=== PATIENT | male | born 1970 | race Caucasian/White ===

== ENCOUNTER 2020-07-09 07:29 | Outpatient (REF) | payer OTHER, SELFPAY ==
[2020-07-09 08:55] LABS: Alanine Aminotransferase 20 U/L (0-40); Anion Gap 10 (12-20); Aspartate Amino Transferase 18 U/L (5-37); Blood Urea Nitrogen 18 mg/dL (9-16); Carbon Dioxide 27 mmol/L (22-29); Chloride 104 mmol/L (96-108); Estimated Glomerular Filt Rate > 60; Potassium 4.2 mmol/L (3.3-5.1); Sodium 137 mmol/L (135-145)
== END 2020-07-09 07:30 | disposition home or self-care (01) ==
LOC: HO.LAB 07:29
PROVIDERS: PCP Family Medicine; Visit Provider Family Medicine
DX: I10 Essential (primary) hypertension (principal); E78.00 Pure hypercholesterolemia, unspecified; Z79.899 Other long term (current) drug therapy
CPT/HCPCS: 36415; 80051; 82550; 82565; 84450; 84460; 84520

== ENCOUNTER 2020-09-10 07:55 | Outpatient (REF) | payer OTHER, SELFPAY ==
[2020-09-11 12:07] LABS: Lyme Abs Screen <0.90 index
== END 2020-09-10 07:56 | disposition home or self-care (01) ==
LOC: HO.LAB 07:55
PROVIDERS: PCP Family Medicine; Visit Provider Family Medicine
DX: R53.83 Other fatigue (principal); T14.8XXA Other injury of unspecified body region, initial encounter; W57.XXXA Bitten or stung by nonvenomous insect and other nonvenomous arthropods, initial encounter
CPT/HCPCS: 36415; 86617; 86618

== ENCOUNTER 2021-02-02 11:41 | Outpatient (REF) | payer OTHER, SELFPAY ==
[2021-02-02 13:39] LABS: Anion Gap 10 (12-20); Blood Urea Nitrogen 12 mg/dL (9-16); Carbon Dioxide 27 mmol/L (22-29); Chloride 105 mmol/L (96-108); Estimated Glomerular Filt Rate > 60; Potassium 4.3 mmol/L (3.3-5.1); Sodium 138 mmol/L (135-145)
== END 2021-02-02 11:42 | disposition home or self-care (01) ==
LOC: HO.10HDL 11:41
PROVIDERS: Visit Provider Family Medicine
DX: I10 Essential (primary) hypertension (principal)
CPT/HCPCS: 36415; 80051; 82565; 84520

== ENCOUNTER 2021-04-27 06:26 | Day surgery (SDC) | payer OTHER, SELFPAY ==
[2021-04-22 15:18] VITALS: BMI 31.5
--- NOTE | 2021-04-24 12:03 | P.CONAN_ITS ---
Documented by User: Jen Méndez NP 04/24/21 12:04 HPI - Anesthesia Eval Consult details Narrative: 51yo M for Upper Endoscopy and Colonoscopy COUNTS INCLUDE 234 BEDS AT THE [facility] Past Medical History Medical History (Updated 04/24/21 @ 07:43 by Wanda Cuello) Arthritis History of broken nose HTN (hypertension) Hypercholesteremia Kidney stones Surgical History Surgical History (Updated 04/24/21 @ 07:43 by Wanda Cuello) H/O cervical spine surgery H/O colonoscopy H/O right knee surgery History of surgery on arm Social History Social History Tobacco use type: Cigar Have you been hit, kicked, punched, or otherwise hurt by someone within the past year? If so, by whom?: No Are you DNR?: No Advance Directives: No Advance Directives Information Provided: Yes Recently lost weight without trying: No Nutrition Risks: No Nutritional Risk Meds Allergies Allergy/AdvReac Type Severity Reaction Status Date / Time bee pollen [Bee Stings] Allergy Severe ANAPHYLAXIS Verified 04/27/21 06:25 lactose intolerant Allergy Severe Anaphylaxis Uncoded 04/27/21 06:25 bees Allergy Unknown anaphylaxis Uncoded 09/20/17 00:00 DAIRY PRODUCTS Allergy Unknown UNKNOWN Uncoded 10/25/19 15:13 Home Medications Medication Instructions Recorded Confirmed Last Taken Type CoQ-10 1 cap PO 04/24/21 Unknown History lisinopril 5 mg tablet 1 tab PO DAILY 04/24/21 04/24/21 Unknown History meloxicam 15 mg tablet 1 tab PO DAILY 04/24/21 04/24/21 03/29/21 History multivitamin 1 tab PO DAILY 04/24/21 04/24/21 Unknown History omeprazole 20 mg capsule,delayed 1 cap PO BID 04/24/21 04/24/21 Unknown History release simvastatin 20 mg tablet 1 tab PO BEDTIME 04/24/21 04/24/21 Unknown History aspirin 81 mg tablet,delayed mg 04/27/21 04/27/21 04/26/21 History release metoprolol succinate 50 mg 1 tab PO DAILY 04/27/21 04/27/21 04/27/21 History tablet,extended release 24 hr Exam Exam Date and Time: April 24, 2021 1203 Height,Weight and Vital Signs: Height 5 ft 10 in Weight 99.79 kg Assessment and Plan Assessment Anesthesia Assessment: Chart Reviewed Documented by User: Viviana Rubin MD 04/27/21 07:03 COUNTS INCLUDE 234 BEDS AT THE [facility] Past Medical History Medical History (Updated 04/24/21 @ 07:43 by Wanda Cuello) Arthritis History of broken nose HTN (hypertension) Hypercholesteremia Kidney stones Family History Family history of problems with anesthesia: No Surgical History Surgical History (Updated 04/24/21 @ 07:43 by Wanda Cuello) H/O cervical spine surgery H/O colonoscopy H/O right knee surgery History of surgery on arm History of Problems with Anesthesia: No Social History Social History Tobacco use type: Cigar Have you been hit, kicked, punched, or otherwise hurt by someone within the past year? If so, by whom?: No Are you DNR?: No Advance Directives: No Advance Directives Information Provided: Yes Recently lost weight without trying: No Nutrition Risks: No Nutritional Risk Meds Allergies Allergy/AdvReac Type Severity Reaction Status Date / Time bee pollen [Bee Stings] Allergy Severe ANAPHYLAXIS Verified 04/27/21 06:25 lactose intolerant Allergy Severe Anaphylaxis Uncoded 04/27/21 06:25 bees Allergy Unknown anaphylaxis Uncoded 09/20/17 00:00 DAIRY PRODUCTS Allergy Unknown UNKNOWN Uncoded 10/25/19 15:13 Home Medications Medication Instructions Recorded Confirmed Last Taken Type CoQ-10 1 cap PO 04/24/21 Unknown History lisinopril 5 mg tablet 1 tab PO DAILY 04/24/21 04/24/21 Unknown History meloxicam 15 mg tablet 1 tab PO DAILY 04/24/21 04/24/21 03/29/21 History multivitamin 1 tab PO DAILY 04/24/21 04/24/21 Unknown History omeprazole 20 mg capsule,delayed 1 cap PO BID 04/24/21 04/24/21 Unknown History release simvastatin 20 mg tablet 1 tab PO BEDTIME 04/24/21 04/24/21 Unknown History aspirin 81 mg tablet,delayed mg 04/27/21 04/27/21 04/26/21 History release metoprolol succinate 50 mg 1 tab PO DAILY 04/27/21 04/27/21 04/27/21 History tablet,extended release 24 hr Exam Airway Mallampati Class: II (Multiple caps laterally) TM Dist: >3cm Neck ROM: Full Heart: rrr Lungs: cta Assessment and Plan Assessment Anesthesia Assessment: Anesthesia Plan Discussed and Chart Reviewed Final Anesthetic Review Family History of Problems with Anesthesia: No History of Problems with Anesthesia: No NPO: Yes ASA Class: II Final Preanesthetic Review: No Changes in Pt Med Stat, Meds/Allgs Chart Reviewed and Consent Obtained/Reviewed Patient Risk: Intermediate Procedure Risk: Intermediate Anesthetic Plan Anesthetic Plan: MAC: Disposition: Standard PACU
[2021-04-27 06:34] VITALS: BP 149/87; PULSE 100; RESP 20; TEMP 36.6; O2SAT 96
[2021-04-27] MEDS: Lactated Ringers 1,000 ML 100 ML IVCONT (06:51)
[2021-04-27 08:38] VITALS: BP 116/79; PULSE 90; RESP 12; TEMP 36.1; O2SAT 96
--- NOTE | 2021-04-27 08:38 | PM.OP ---
Brief Operative Note Date of Service: 04/27/21 Pre-op diagnosis: GERD, Screening Post-op diagnosis: other (Minimal HH, Colon polyps) Procedure: EGD with biopsies, Colonoscopy to cecum and TI with cold snare polypectomy x 3 Surgeon: Robert Cullen Anesthesia: MAC Was an Technology Development Intern used for this Procedure?: No Estimated blood loss (mL): 2.0 Pathology: other (A. EG Junction at 39cm B. Transverse colon polyps C. Polyp at 20cm) Condition: stable Disposition: PACU
[2021-04-27 08:53] VITALS: BP 127/79; PULSE 91; RESP 16; TEMP 36.1; O2SAT 95
--- NOTE | 2021-05-04 15:10 | OP_ITS ---
SURGEON: Robert Cullen MD INDICATIONS: The patient presents for evaluation of gastroesophageal reflux, family history of colon cancer, and colorectal cancer screening. Full consent has been obtained from him for this, including risks of bleeding and perforation. PREOPERATIVE DIAGNOSIS: POSTOPERATIVE DIAGNOSIS: PROCEDURE PERFORMED: Esophagogastroduodenoscopy with biopsies, and colonoscopy to the cecum and terminal ileum with cold snare polypectomy. ESTIMATED BLOOD LOSS: COMPLICATIONS: ANESTHESIA: Medication used, monitored anesthesia care. ASSISTANTS: SPECIMENS: PREOPERATIVE DIAGNOSES: Gastroesophageal reflux, colorectal cancer screening, family history colon cancer. POSTOPERATIVE DIAGNOSES: Gastroesophageal reflux, colorectal cancer screening, family history colon cancer, minimal hiatal hernia, small colon polyp, mild sigmoid diverticulosis, small internal hemorrhoids. DESCRIPTION OF PROCEDURE: The patient was placed in the left lateral decubitus position. The Olympus video gastroscope was passed in the posterior oropharynx and upper esophagus under direct vision. The scope was passed slowly into the distal esophagus. The gastroesophageal junction appeared at 39 cm. There was a very minimal irregularity consistent with reflux but no definitive evidence of Parrish's esophagus, and there was no esophagitis. There was a minimal hiatal hernia. The scope was advanced into the stomach and to the pylorus. The duodenum was cannulated to the descending portion. The duodenum including the bulb appeared normal without mass or ulceration. The scope was withdrawn back in the stomach. The gastric antrum and body appeared normal with good peristalsis. The scope was retroflexed visualizing the proximal stomach carefully, which appeared normal, without any sign of mass or ulceration. The scope was straightened and withdrawn back to the esophagus. Biopsies were obtained at the EG junction at 39 cm. Proximal to this, the esophageal mucosa appeared normal. The scope was withdrawn from the patient. He was turned around for the colonoscopy. The digital rectal exam revealed no abnormalities. The Olympus video pediatric colonoscope was entered into the rectum and advanced easily to the cecum. Once in the cecum I did identify normal-appearing cecal pouch with appendiceal orifice and a normal-appearing ileocecal valve. The terminal ileum was cannulated and appeared normal. The scope was withdrawn back in the colon. The entire cecum and ileocecal valve appeared normal. The scope was slowly withdrawn assessing all mucosal surfaces carefully. Preparation was excellent. In the transverse colon and at 20 cm were flat approximately 5 mm polyps, which were all removed with the cold snare polypectomy and recovered by suction. The polypectomy sites appeared clean, without any sign of residual polyp nor any significant bleeding. There was a mild amount of sigmoid diverticulosis. I did not visualize any other polyps, colitis, nor angiodysplasia. In the rectum, the scope was retroflexed visualizing some small internal hemorrhoids, but no other pathology. The rectal mucosa appeared normal. The scope was straightened and withdrawn from the patient. He tolerated both procedures well and was returned to the recovery area in stable condition. IMPRESSION: 1. Small colon polyps, status post cold snare polypectomy. 2. Mild diverticulosis. 3. Small internal hemorrhoids. 4. Minimal hiatal hernia. PLAN: The results of the biopsies will be checked. Even if these are not tubular adenomas, I would recommend a followup colonoscopy in 5 years for further screening given his family history of colon cancer. He will continue omeprazole daily as needed for his reflux. He will otherwise see me on a p.r.n. basis. He was advised not to use any aspirin or NSAIDs for 1 week. MD RYAN Lizarraga/LUI / [phone] MTDAlberto
== END 2021-04-27 09:18 | disposition home or self-care (01) ==
PROVIDERS: PCP Family Medicine; Visit Provider Internal Medicine
PROC: (CPT 45385; principal; 2021-04-27 07:30)
DX: Z12.11 Encounter for screening for malignant neoplasm of colon (principal); Z80.0 Family history of malignant neoplasm of digestive organs; D12.3 Benign neoplasm of transverse colon; K63.5 Polyp of colon; K57.30 Diverticulosis of large intestine without perforation or abscess without bleeding; K64.8 Other hemorrhoids; K21.9 Gastro-esophageal reflux disease without esophagitis; K44.9 Diaphragmatic hernia without obstruction or gangrene; I10 Essential (primary) hypertension; E78.00 Pure hypercholesterolemia, unspecified; Z79.899 Other long term (current) drug therapy; Z87.891 Personal history of nicotine dependence
CPT/HCPCS: 45385; 43239; 88305; J2250

== ENCOUNTER 2021-08-26 15:49 | Outpatient (REF) | payer OTHER, SELFPAY ==
[2021-08-26 17:02] LABS: Anion Gap 13 (12-20); Blood Urea Nitrogen 16 mg/dL (9-16); Carbon Dioxide 26 mmol/L (22-29); Chloride 105 mmol/L (96-108); Estimated Glomerular Filt Rate 58; Potassium 4.5 mmol/L (3.3-5.1); Sodium 139 mmol/L (135-145)
== END 2021-08-26 15:50 | disposition home or self-care (01) ==
LOC: HO.LAB 15:49
PROVIDERS: PCP Family Medicine; Visit Provider Family Medicine
DX: I10 Essential (primary) hypertension (principal)
CPT/HCPCS: 36415; 80051; 82565; 84520

== ENCOUNTER 2022-03-20 06:48 | Outpatient (REF) | payer OTHER, SELFPAY ==
[2022-03-20 11:20] LABS: Alanine Aminotransferase 19 U/L (0-40); Anion Gap 13 (12-20); Aspartate Amino Transferase 16 U/L (5-37); Blood Urea Nitrogen 17 mg/dL (9-16); Carbon Dioxide 25 mmol/L (22-29); Chloride 105 mmol/L (96-108); Estimated Glomerular Filt Rate > 60; Potassium 4.6 mmol/L (3.3-5.1); Sodium 138 mmol/L (135-145)
== END 2022-03-20 06:49 | disposition home or self-care (01) ==
LOC: HO.HMGCLDS 06:48
PROVIDERS: PCP Family Medicine; Visit Provider Family Medicine
DX: I10 Essential (primary) hypertension (principal); E78.00 Pure hypercholesterolemia, unspecified; Z79.899 Other long term (current) drug therapy
CPT/HCPCS: 36415; 80051; 82550; 82565; 84450; 84460; 84520

== ENCOUNTER 2022-07-26 06:08 | Outpatient (REF) | payer OTHER, SELFPAY ==
[2022-07-26 06:22] LABS: MANUAL DIFF FLAG NO
[2022-07-26 07:27] LABS: Basophils Percent Auto 0.3 % (0-2); Eosinophils Absolute Auto 0.2 X10*3/uL (0.0-0.4); Eosinophils Percent Auto 2.4 % (0-4); Hematocrit 46.3 % (42.0-52.0); Hemoglobin 15.5 g/dl (14.0-18.0); Imm Gran Abs Auto 0.04 X10*3/uL (0.00-0.03); Imm Gran Pct Auto 0.4 % (0.0-0.4); Lymphocytes Absolute Auto 2.2 X10*3/uL (1.2-4.9); Lymphocytes Percent Auto 23.7 % (20-40); Mean Corpuscular HGB Conc 33.5 g/dl (31.0-36.0); Mean Corpuscular Hemoglobin 31.4 pg (27.0-33.0); Mean Corpuscular Volume 93.9 fL (80.0-98.0); Mean Platelet Volume 10.4 fL (9.4-12.4); Monocytes Percent Auto 10.5 % (2-11); Neutrophils Absolute Auto 5.8 x10*3/uL (2.0-8.3); Neutrophils Percent Auto 62.7 % (45-73); Platelet Count 229 X10*3/uL (160-400); Red Blood Count 4.93 X10*6/uL (4.60-5.80); White Blood Count 9.2 X10*3/uL (4.8-10.8)
[2022-07-26 08:19] LABS: Alanine Aminotransferase 14 U/L (0-40); Albumin Level 3.9 g/dL (3.5-5.0); Alkaline Phosphatase 96 U/L (39-117); Anion Gap 12 (12-20); Aspartate Amino Transferase 16 U/L (5-37); Bilirubin Total 0.5 mg/dL (0.0-1.0); Blood Urea Nitrogen 23 mg/dL (9-16); Calcium 9.1 mg/dL (8.4-10.2); Carbon Dioxide 24 mmol/L (22-29); Chloride 106 mmol/L (96-108); Estimated Glomerular Filt Rate > 60; Glucose Fasting 101 mg/dL (60-99); Potassium 4.2 mmol/L (3.3-5.1); Sodium 138 mmol/L (135-145); Total Protein 6.7 g/dL (6.5-8.0)
[2022-07-26 08:37] LABS: Free T4 (Free Thyroxine) 0.77 ng/dL (0.71-1.85); Thyroid Stimulating Hormone 2.25 uIU/mL (0.32-4.0)
[2022-07-29 13:48] LABS: 18 KD (IgG) Band NON-REACTIVE; 23 KD (IgG) Band NON-REACTIVE; 23 KD (IgM) Band REACTIVE; 28 KD (IgG) Band NON-REACTIVE; 30 KD (IgG) Band NON-REACTIVE; 39 KD (IgM) Band NON-REACTIVE; 39KD (IgG) Band NON-REACTIVE; 41 KD (IgM) Band NON-REACTIVE; 41KD (IgG) Band REACTIVE; 45 KD (IgG) Band NON-REACTIVE; 58 KD (IgG) Band NON-REACTIVE; 66 KD (IgG) Band NON-REACTIVE; 93 KD (IgG) Band REACTIVE; Lyme IgG Blot Interp NEGATIVE (NEGATIVE); Lyme IgM Blot Interp NEGATIVE (NEGATIVE)
== END 2022-07-26 06:09 | disposition home or self-care (01) ==
LOC: HO.LAB 06:08
PROVIDERS: PCP Family Medicine; Visit Provider Family Medicine
DX: R53.83 Other fatigue (principal); I10 Essential (primary) hypertension; T14.8XXA Other injury of unspecified body region, initial encounter; W57.XXXA Bitten or stung by nonvenomous insect and other nonvenomous arthropods, initial encounter; E78.00 Pure hypercholesterolemia, unspecified; Z79.899 Other long term (current) drug therapy
CPT/HCPCS: 36415; 80053; 84439; 84443; 85025; 86617

== ENCOUNTER 2022-11-13 06:53 | Outpatient (REF) | payer OTHER, SELFPAY | END 2022-11-13 06:54 | disposition home or self-care (01) | LOC: HO.HMGCLDS 06:53 | PROVIDERS: PCP Family Medicine; Visit Provider Family Medicine | DX: E78.00 Pure hypercholesterolemia, unspecified (principal); Z79.899 Other long term (current) drug therapy; Z83.3 Family history of diabetes mellitus | CPT/HCPCS: 36415; 80061; 82947; 83036 ==

== ENCOUNTER 2022-12-17 09:33 | Outpatient (REF) | payer OTHER, SELFPAY ==
[2022-12-17 11:40] LABS: Alanine Aminotransferase 14 U/L (0-40); Anion Gap 9 (12-20); Aspartate Amino Transferase 17 U/L (5-37); Blood Urea Nitrogen 11 mg/dL (9-16); Carbon Dioxide 28 mmol/L (22-29); Chloride 106 mmol/L (96-108); Estimated Glomerular Filt Rate > 60; Potassium 4.6 mmol/L (3.3-5.1); Sodium 138 mmol/L (135-145)
== END 2022-12-17 09:34 | disposition home or self-care (01) ==
LOC: HO.10HDL 09:33
PROVIDERS: Visit Provider Family Medicine
DX: I10 Essential (primary) hypertension (principal); E78.00 Pure hypercholesterolemia, unspecified; Z79.899 Other long term (current) drug therapy
CPT/HCPCS: 36415; 80051; 82550; 82565; 84450; 84460; 84520

== ENCOUNTER 2023-04-29 10:15 | Outpatient (REF) | payer OTHER, SELFPAY ==
--- NOTE | ~2023-04-29 | XR_ITS ---
EXAMINATION: XR LUMBOSACRAL SPINE CLINICAL INFORMATION: Left sciatica. COMPARISON: [facility] of September 01, 2016. TECHNIQUE: Three views of the lumbosacral spine. FINDINGS: Levoscoliosis of the lumbar spine. Degenerative changes on limited images of the bilateral sacroiliac joints. Facet arthritis in the mid to lower lumbar spine. Moderate multilevel lumbar spondylosis. Minimal grade 1 retrolisthesis of L2 on L3, and of L3 on L4. XR/XR lumbar spine 2-3V IMPRESSION: Moderate multilevel lumbar spondylosis.
== END 2023-04-29 10:16 | disposition home or self-care (01) ==
LOC: HO.XRAY 10:15
PROVIDERS: PCP Family Medicine; Visit Provider Family Medicine
DX: M54.32 Sciatica, left side (principal)
CPT/HCPCS: 72100

== ENCOUNTER 2023-07-11 09:20 | Outpatient (AMB) | payer OTHER, SELFPAY ==
--- NOTE | 2023-07-11 09:33 | A.SPINEOV_ITS ---
Intake Visit Reasons: LBP Intake Note: Mr. English is here c/o back pain. Demand Planning Analyst Required: No Allergies bee pollen [Bee Stings] Allergy (Severe, Verified 04/27/21 06:25) ANAPHYLAXIS lactose intolerant Allergy (Severe, Uncoded 04/27/21 06:25) Anaphylaxis bees Allergy (Unknown, Uncoded 09/20/17 00:00) anaphylaxis DAIRY PRODUCTS Allergy (Unknown, Uncoded 10/25/19 15:13) UNKNOWN Assessment & Plan Assessment & Plan (1) Lumbar radiculopathy: Code(s): M54.16 - Radiculopathy, lumbar region Category: Medical Plan Dear Dr Orozco, Thank you for referring Mr English to our office today. He is a very nice 53-year-old gentleman who presents to the office today for evaluation of a pain that started 3 months ago that radiates down his left buttock into his left posterior thigh, left posterior calf. It started 1 morning when he was just getting out of bed, he was not lifting anything or doing any kind of strenuous movement he felt the pain shoot down his leg. Since that time he has been dealing with severe pain that has been very limiting to his quality of life. It is particularly bad 1st thing in the morning. The 1st 2 or 3 hours are brutal, and as he gets going it seems to ease off a little bit but then his his day progresses, sitting, standing can be terribly painful. He underwent what sounds like a TFE which only seemed to make the pain worse. He has not yet done any physical therapy. He was stretching and doing exercises at home but nothing formal. He has tried tramadol, extra-strength Tylenol, Lyrica, anti- inflammatories etc. all without any improvement. He comes in today with an MRI done at [place] showing compression of the left S1 nerve root. PMH: He had a C4-6 posterior laminectomy with lateral mass fixation by Dr. Ba at [facility] a number of years ago, he has had knee surgery, high cholesterol. Denies any history of heart attacks, strokes, bleeding disorders, blood clots, kidney disorders, liver disease, major abdominal surgery, cancer etc. Social hx: He smokes about half a pack a day, no alcohol or marijuana Medications: Simvastatin, Co Q10, pregabalin, tramadol, metoprolol, lisinopril, Tylenol Allergies: None Physical exam: He is awake alert oriented, he is uncomfortable constantly changing positions. He has full strength of bilateral lower extremities but he has an absent left Achilles reflex. Imaging review: Lumbar MRI done at [place] shows and the left at L5-S1 there is a hypointense area just anterior to the left L5-S1 facet either consistent with ligamentous overgrowth or a migrated herniated disc fragment which is compressing the left S1 nerve root. Impression: 53-year-old male with left S1 radiculopathy secondary to what appears to be compression of either ligamentous overgrowth or migrated herniated disc fragment. He is trialed conservative treatment with the exception of physical therapy. At currently he is trying to avoid surgery, so he would like to try another injection. It sounds like he may be already scheduled for an epidural. I gave him a prescription for physical therapy because we know the insurance company will not approve any surgery unless that is completed. Just in case it ends up coming to that, I told him to try PT but if it made the pain worse just discontinue it. I will see him back in 6 weeks after he has had another injection and some time to do some PT and reassess. I will review his imaging with Dr. Kothari, but I believe he would ultimately be a good candidate for left L5-S1 decompression. Thank you for allowing us to care for your patient. The total time spent with this visit with this patient was 45 minutes reviewing history, physical exam, lumbar imaging review, and implementation of treatment plan or further diagnostic testing Eloy Kothari MD,PhD [facility] Orders: Orders PT Evaluation and Treatment Today M54.16 - Radiculopathy, lumbar region Coding Level of Care Code New Pt Level 4 (48217) Diagnoses Lumbar radiculopathy M54.16
== END 2023-07-11 10:25 | disposition home or self-care (01) ==
PROVIDERS: PCP Family Medicine; Referring Provider Physical Medicine & Rehabilitation; Visit Provider Physician Assistant
DX: M54.16 Radiculopathy, lumbar region (principal)
CPT/HCPCS: 99204

== ENCOUNTER → 2023-07-11 09:20 | Outpatient (BNVA) | payer OTHER, SELFPAY | PROVIDERS: PCP Family Medicine; Visit Provider Physician Assistant ==

== ENCOUNTER 2023-07-21 06:10 | Outpatient (REF) | payer OTHER, SELFPAY ==
[2023-07-21 10:46] LABS: Anion Gap 12 (12-20); Blood Urea Nitrogen 13 mg/dL (9-16); Carbon Dioxide 26 mmol/L (22-29); Chloride 104 mmol/L (96-108); Estimated Glomerular Filt Rate > 60; Potassium 4.1 mmol/L (3.3-5.1); Sodium 138 mmol/L (135-145)
== END 2023-07-21 06:11 | disposition home or self-care (01) ==
LOC: HO.HMGCLDS 06:10
PROVIDERS: PCP Family Medicine; Visit Provider Family Medicine
DX: I10 Essential (primary) hypertension (principal)
CPT/HCPCS: 36415; 80051; 82565; 84520

== ENCOUNTER 2023-10-05 16:24 | Outpatient (REF) | payer OTHER, SELFPAY ==
--- NOTE | ~2023-10-05 | XR_ITS ---
EXAMINATION: XR KNEE, RIGHT CLINICAL INFORMATION: Right knee pain, persistent and not improving COMPARISON: None available. TECHNIQUE: Four views of the right knee. FINDINGS: BONES: Bony structures are intact. There is no focal bone destruction or periosteal reaction seen. JOINTS: Alignment of joints is normal. There is marked decrease in medial compartments right knee joint space. SOFT TISSUE: Soft tissue is normal. No radiopaque foreign body or abnormal air collection is seen. XR/XR knee RT 4V IMPRESSION: 1. Advanced medial compartment right tibiofemoral joint osteoarthritis. 2. No fracture or dislocation or signs of osteomyelitis are found. Electronically signed by: Sarai Mijares MD 10/06/2023 08:42 AM EDT
== END 2023-10-05 16:25 | disposition home or self-care (01) ==
LOC: HO.XRAY 16:24
PROVIDERS: PCP Family Medicine; Visit Provider Family Medicine
DX: M25.561 Pain in right knee (principal)
CPT/HCPCS: 73564

== ENCOUNTER 2023-10-31 07:55 | Outpatient (REF) | payer OTHER, SELFPAY | END 2023-10-31 07:56 | disposition home or self-care (01) | LOC: HO.SH 07:55 | PROVIDERS: Visit Provider Family Medicine | DX: Z01.118 Encounter for examination of ears and hearing with other abnormal findings (principal); H90.3 Sensorineural hearing loss, bilateral | CPT/HCPCS: 92557; 92567 ==

== ENCOUNTER 2023-11-27 12:55 | Emergency (ER) | payer OTHER, SELFPAY ==
--- NOTE | ~2023-11-27 | US_ITS ---
EXAMINATION: US TRIPLEX LOWER EXTREMITY, LEFT CLINICAL INFORMATION: Left leg pain COMPARISON: None available. TECHNIQUE: Color-flow triplex imaging with spectral analysis and compression Doppler were performed on the left lower extremity. FINDINGS: Respiratory variation, normal compression and augmented flow are noted throughout the left lower extremity. The visualized common femoral vein, superficial femoral vein, profunda femoral vein, popliteal vein and midcalf peroneal and posterior tibial venous segments show no evidence of deep venous thrombosis. There is no Espino's cyst. US/US venous duplex LE LT IMPRESSION: No evidence of deep venous thrombosis involving the left lower extremity. Electronically signed by: Mike Sosa MD 11/27/2023 03:11 PM EDT
--- NOTE | ~2023-11-27 | XR_ITS ---
EXAMINATION: XR KNEE, LEFT CLINICAL INFORMATION: Cracking COMPARISON: Left knee radiograph from 06/27/2012 TECHNIQUE: Four views of the left knee. FINDINGS: No acute visible fracture or dislocation. Multi joint arthritic changes. Mild narrowing of the medial femorotibial compartment. A fabella is noted in the posterior compartment. Joint space alignment otherwise maintained. Trace knee joint effusion. Soft tissues are unremarkable. XR/XR knee LT 4V IMPRESSION: 1. No acute visible fracture or dislocation. 2. Multi joint arthritic changes. 3. Trace knee joint effusion. Electronically signed by: Parveen Feliz MD 11/27/2023 01:40 PM EDT
[2023-11-27 13:01] VITALS: BP 136/80; PULSE 79; RESP 16; TEMP 36.1; O2SAT 97; BMI 31.6
--- NOTE | 2023-11-27 13:01 | ED.LOWEXIN ---
HPI - Extremity Injury (Lower) General Chief Complaint: Extremity Injury, Lower Stated Complaint: L knee inj Time Seen by Provider: 11/27/23 13:17 Source: patient Mode of arrival: wheelchair Limitations: no limitations History of Present Illness ED Provider: Linda Mello PA-C HPI Narrative: 53 yo male with PMH lumbar radiculopathy with left sided sciatica, and arthritis presents after trying to get into his truck this am around 10am, using his left leg as the pivot point and heard a cracking sound upon stepping up. This created significant pain from the left buttock area down through the toes, and into the knee. He reports the inability to put pressure and ambulate due to the pain it causes to the left lower extremity. Denies numbness, reports tingling to the left upper toes however indicates this was not completely new. States pain is intense behind the knee, he is unable to bend the knee due to this intense pain. Is however able to move all toes, denies change in temperature or sensation outside of the previous tingle. MD complaint: knee injury Onset (ago): hour(s) Type of Injury: hyperflexion Severity: severe Relieving factors: immobilization and rest Exacerbating factors: weight bearing Associated symptoms: able to partially bear weight Other symptoms: none Related Data Home Medications ?Medication ?Instructions ?Recorded ?Confirmed CoQ-10 1 cap PO 04/24/21 lisinopril 5 mg tablet 1 tab PO DAILY 04/24/21 04/24/21 meloxicam 15 mg tablet 1 tab PO DAILY 04/24/21 04/24/21 multivitamin 1 tab PO DAILY 04/24/21 04/24/21 omeprazole 20 mg capsule,delayed 1 cap PO BID 04/24/21 04/24/21 release simvastatin 20 mg tablet 1 tab PO BEDTIME 04/24/21 04/24/21 aspirin 81 mg tablet,delayed mg 04/27/21 04/27/21 release metoprolol succinate 50 mg 1 tab PO DAILY 04/27/21 04/27/21 tablet,extended release 24 hr Allergies Allergy/AdvReac Type Severity Reaction Status Date / Time bee pollen [Bee Stings] Allergy Severe ANAPHYLAXIS Verified 11/27/23 13:03 lactose intolerant Allergy Severe Anaphylaxis Uncoded 11/27/23 13:03 bees Allergy Unknown anaphylaxis Uncoded 11/27/23 13:03 DAIRY PRODUCTS Allergy Unknown UNKNOWN Uncoded 11/27/23 13:03 Review of Systems Review of Systems: Yes all other systems are reviewed and are negative [facility] Past Medical History Medical History (Updated 11/27/23 @ 16:03 by NATHANIEL Mesa) History of broken nose Arthritis Hypercholesteremia HTN (hypertension) Kidney stones Surgical History (Updated 04/24/21 @ 07:43 by Wanda Cuello RN) H/O right knee surgery H/O cervical spine surgery History of surgery on arm H/O colonoscopy Social History Social History Tobacco use type: Cigar Advance Directives: No Advance Directives Information Provided: No Physical Exam Vital Signs: Vital Signs: Last Vital Signs Temp 96.9 F 11/27/23 13:01 Pulse 79 11/27/23 13:01 Resp 16 11/27/23 13:01 BP 136/80 11/27/23 13:01 Pulse Ox 97 11/27/23 13:01 O2 Del Method Room Air 11/27/23 13:01 BMI result Body Mass Index 31.6 Appearance: Alert. Oriented X3. No acute distress. HEENT: normal external inspection Neck: Normal inspection. CVS: Normal heart rate and rhythm. Pulses normal. Respiratory: No respiratory distress. Breath sounds normal. Abdomen: Soft and nontender. +BS x4 Skin: Skin warm and dry. Normal skin color. Normal skin turgor. No rashes. Extremities: No lower extremity edema. Left suprapatellar joint swelling. limited flexion due to pain. tenderness in the left popliteal area without significant swelling. no left calf tenderness of swelling. NV intact distally. Neuro/psych: Oriented X 3. grossly normal, nonfocal CN II-XII intact. Normal speech and cognition. Course Course Course Narrative: This is a Rapid Medical Examination (RME) performed by Phil Enriquez PA-C in triage. Full HPI, ROS, assessment and treatment plan per primary provider in the Main ED. 53 yo male here for eval of left knee pain which started when he attempted to get into his truck this morning. heard cracking sensation from knee. unable to bear weight on LLE. no pain at rest. hx of left sided sciatica, completed 3-4 months of PT for this. now taking pregabalin for this. Plan: xr Medical Decision Making Medical Decision Making MDM Narrative: 53 yo male with PMH lumbar radiculopathy with left sided sciatica, and arthritis. Presents after trying to get into his truck this am around 10am, using his left leg as the pivot point and heard a cracking sound upon stepping up. ROM intact to BLE, however inhibited to LLE due to pain. Positive leg raise to left leg, negative anterior drawer pull to left knee. Negative redness or streaking to left leg, tender to palpation of posterior knee. Positive pedal pulses, cap refill less than 3 seconds. Positive suprapatellar effusion to palpation, no warmth. Strength 4/5 to LLE, 5/5 RLE. Left knee Xray ordered and completed, read with findings of: 1. No acute visible fracture or dislocation., 2. Multi joint arthritic changes. 3. Trace knee joint effusion. LLE US ordered and resulted, negative for centeno's cyst, and DVT. Ramu wrap, ambulation trial as well as crutches. Differential Diagnosis Differential Diagnoses: The differential diagnosis associated with the presentation includes osteoarthritis, joint effusion, ligamentous injury, sciatica exacerbation, bakers cyst, DVT Independent Interpretation I performed an independent interpretation of an: Plain X-Ray and Ultrasound Interpretation: xr without large effusion, no fx U/S without acute DVT Radiology Impression Discussion of test interpretation with radiology: I have reviewed the radiologist's reading. Independent Historian Clinical information obtained from an independent historian. History obtained from or confirmed by: Spouse External Record Review External record reviewed: Outpatient record and Prior outpatient labs Prescription Management I considered prescription management with: Pain Medication Critical Care Time Critical Care Time Critical Care Time: No Discharge Plan Discharge Clinical Impression: Effusion of knee, Arthritis of knee Patient Disposition: Home, Self-Care Instructions: Osteoarthritis (DC), Swollen Knee Joint (ED) Additional Instructions: You came into the ER today for left knee pain, the Xray was negative for any fracture, it did show mild arthritis and trace effusion. We also did an ultrasound of the left leg which was negative as well for any DVT or cysts. We recommend RAMU wrap, elevation and NSAIDS. Follow up with orthopedics below, you can call them this week to make an appointment. Prescriptions: No Action meloxicam 15 mg tablet 1 tab PO DAILY simvastatin 20 mg tablet 1 tab PO BEDTIME omeprazole 20 mg capsule,delayed release(DR/EC) 1 cap PO BID lisinopril 5 mg tablet 1 tab PO DAILY CoQ-10 10 mg capsule 1 cap PO multivitamin 1 tab PO DAILY metoprolol succinate 50 mg tablet extended release 24 hr 1 tab PO DAILY aspirin [Aspir-81] 81 mg Tablet,Delayed Release (Dr/Ec) Referrals: [facility] [place] Orthopedic Surgeons [Provider Group] (Arthritis, knee effusion) Stand Alone Forms: Work/School Release Print Language: Anguillan
[2023-11-27 16:13] VITALS: BP 136/80; PULSE 79; RESP 16; TEMP 36.1; O2SAT 97
== END 2023-11-27 16:14 | disposition home or self-care (01) ==
PROVIDERS: Emergency Provider Emergency Medicine; PCP Family Medicine
DX: M25.462 Effusion, left knee (principal); M54.42 Lumbago with sciatica, left side; R60.0 Localized edema; Z79.899 Other long term (current) drug therapy
CPT/HCPCS: 73564; 93971; 99283

== ENCOUNTER 2023-12-05 11:02 | Outpatient (AMB) | payer OTHER, SELFPAY ==
--- NOTE | 2023-12-05 11:17 | A.SPINEOV_ITS ---
Intake Visit Reasons: Discuss sx Intake Note: Mr. Coffey is here today to [facility] Surgery. Signals Collection Technician Required: No Allergies bee pollen [Bee Stings] Allergy (Severe, Verified 11/27/23 13:03) ANAPHYLAXIS lactose intolerant Allergy (Severe, Uncoded 11/27/23 13:03) Anaphylaxis bees Allergy (Unknown, Uncoded 11/27/23 13:03) anaphylaxis DAIRY PRODUCTS Allergy (Unknown, Uncoded 11/27/23 13:03) UNKNOWN Assessment & Plan Assessment & Plan (1) Left knee pain: Code(s): M25.562 - Pain in left knee Category: Medical Plan Mr coffey is here in follow-up. A few weeks ago he was stepping up to get in his truck and had all his weight on his left leg and felt a pop in his knee. That ultimately landed him in the emergency room because of the intensity of the pain. He had x-rays showing a little bit of arthritis in his left knee, a DVT was excluded and he was discharged with crutches. We know him from an L5-S1 disc herniation that was being managed with medications and conservative treatments. That symptom was typically buttock pain that would go down the back of his hamstring. That maybe a little more aggravated after this injury as well. The knee pain seems to be getting slightly better. On my exam he still has intact strength and reflexes. The knee is a little bit tender. I told him that he should follow up with ortho as scheduled on December 12 and see if they think this is coming from his knee. If they exclude this as a possibility, we could get a new lumbar MRI to rule out a new disc herniation causing radiculopathy. Total amount of time spent in this visit was 20 minutes in discussion of symptoms, knee x-rays, previous lumbar imaging results and subsequent plan of care Eloy Kothari MD,PhD [facility] Coding Level of Care Code Est Pt Level 3 (29262) Diagnoses Left knee pain M25.562
== END 2023-12-05 11:49 | disposition home or self-care (01) ==
PROVIDERS: PCP Family Medicine; Visit Provider Physician Assistant
DX: M25.562 Pain in left knee (principal)
CPT/HCPCS: 99213

== ENCOUNTER → 2023-12-05 11:02 | Outpatient (BNVA) | payer OTHER, SELFPAY | PROVIDERS: PCP Family Medicine; Visit Provider Physician Assistant ==

== ENCOUNTER 2023-12-13 07:31 | Outpatient (AMB) | payer OTHER, SELFPAY ==
--- NOTE | 2023-12-13 07:34 | MHC.OFFVIS ---
Intake Visit Reasons: Left knee pain and giving way Intake Note: Ernie is a 53 yo male who presents with complaints of progressively worsening left knee pain and giving way. The patient did undergo right knee arthroscopic surgery approximately 20 years ago. He got fairly good relief from that procedure. He does have intermittent discomfort in his right knee as well. He states that his right knee discomfort is tolerable to him at this time. The patient describes his left knee pain as sharp and severe in nature. Most of the pain is along the medial aspect of his knee. He states that his left knee will give out several times per day. He has walked with crutches and a cane because of his pain and mechanical symptoms. He has had injections in the past which gave him no relief. He has failed the last 6 weeks of conservative treatment. He has been going to formal physical therapy which seems to aggravate his pain. He has also tried Tylenol and anti-inflammatory medicines which gave him minimal relief. Allergies bee pollen [Bee Stings] Allergy (Severe, Verified 11/27/23 13:03) ANAPHYLAXIS lactose intolerant Allergy (Severe, Uncoded 11/27/23 13:03) Anaphylaxis bees Allergy (Unknown, Uncoded 11/27/23 13:03) anaphylaxis DAIRY PRODUCTS Allergy (Unknown, Uncoded 11/27/23 13:03) UNKNOWN Medication List - Last Reconciled 12/13/23 by Drew Cabrera MD aspirin mg [CoQ-10 1 cap PO] lisinopril 1 tab PO DAILY meloxicam 1 tab PO DAILY metoprolol succinate ER 1 tab PO DAILY [multivitamin 1 tab PO DAILY] omeprazole 1 cap PO BID simvastatin 1 tab PO BEDTIME [facility] Medical History History of broken nose Arthritis Hypercholesteremia HTN (hypertension) Kidney stones Surgical History H/O right knee surgery H/O cervical spine surgery History of surgery on arm H/O colonoscopy Social History Tobacco use type: Cigar Physical Exam Const Other: Well-nourished well-developed very friendly male awake alert and oriented x3 in no acute distress Extrem Other: Bilateral lower extremity examination shows good capillary refill, no skin lesions noted, normal sensation light touch Left knee examination shows a minimal effusion, mild crepitus range of motion, tenderness along his medial joint line, positive Rip's test, no instability Results Reviewed Results Reviewed: Standing full weight-bearing x-rays of the patient's left knee shows mild diffuse joint space narrowing, no acute bony abnormalities MRI of the patient's left knee taken elsewhere shows mild diffuse degenerative changes as well as a tear of the medial meniscus, no acute bony abnormalities Assessment & Plan Assessment & Plan (1) Tear of medial meniscus of left knee: Code(s): S83.242A - Other tear of medial meniscus, current injury, left knee, initial encounter Category: Medical Plan Mr. English presents with progressively worsening left knee pain and mechanical symptoms due to early degenerative joint disease as well as a tear of his medial meniscus. I had a lengthy discussion with the patient regarding the treatment options. At this point he has failed continued non operative treatments. The risks and benefits of left knee arthroscopic surgery were discussed at length with the patient. The patient wishes to proceed with surgery. Surgery will most likely involve left knee arthroscopic partial medial meniscectomy. The patient will contact my office to pick a surgery date. He will follow-up as instructed. Feel free to call me at any time should questions regarding his orthopedic management arise. Thank you very much for asking me to see this very friendly gentleman. I spent 22 minutes in reviewing the patient's records and imaging studies, seeing the patient and documenting in the medical record. Coding Level of Care Code New Pt Level 3 (45820) Complex EM visit Add On G2211 Diagnoses Tear of medial meniscus of left knee S83.242A
== END 2023-12-13 08:02 | disposition home or self-care (01) ==
LOC: HO.HOS 07:31
PROVIDERS: PCP Family Medicine; Visit Provider Orthopaedic Surgery
DX: S83.242A Other tear of medial meniscus, current injury, left knee, initial encounter (principal)
CPT/HCPCS: 99203

== ENCOUNTER → 2023-12-13 07:31 | Outpatient (BNVA) | payer OTHER, SELFPAY | PROVIDERS: PCP Family Medicine; Visit Provider Orthopaedic Surgery ==

== ENCOUNTER → 2023-12-23 12:10 | Outpatient (BNV) | payer OTHER, SELFPAY | PROVIDERS: PCP Family Medicine; Visit Provider Internal Medicine Cardiovascular Disease | DX: I49.40 Unspecified premature depolarization (principal) | CPT/HCPCS: 93010 ==

== ENCOUNTER 2024-01-13 05:58 | Day surgery (SDC) | payer OTHER, SELFPAY ==
[2023-12-23 11:41] VITALS: BP 127/73; PULSE 76; RESP 16; O2SAT 95; BMI 33.0
--- NOTE | 2023-12-23 12:10 | ECG_ITS ---
Test Reason : PREOP Blood Pressure : / mmHG Vent. Rate : 069 BPM Atrial Rate : 069 BPM P-R Int : 144 ms QRS Dur : 074 ms QT Int : 362 ms P-R-T Axes : 050 028 034 degrees QTc Int : 387 ms Normal sinus rhythm ST elevation, consider early repolarization Borderline ECG When compared with ECG of 04-SEP-2008 22:13, No significant change was found Referred By: Jen Méndez Electronically Signed By:Moiz Domingo
[2023-12-23 12:43] LABS: Hematocrit 44.5 % (42.0-52.0); Hemoglobin 15.3 g/dl (14.0-18.0); Mean Corpuscular HGB Conc 34.4 g/dl (31.0-36.0); Mean Corpuscular Hemoglobin 31.5 pg (27.0-33.0); Mean Corpuscular Volume 91.8 fL (80.0-98.0); Mean Platelet Volume 9.8 fL (9.4-12.4); Platelet Count 246 X10*3/uL (160-400); Red Blood Count 4.85 X10*6/uL (4.60-5.80); Red Cell Distribution Width 14.6 % (11.0-16.0); White Blood Count 8.6 X10*3/uL (4.8-10.8)
[2023-12-23 13:18] LABS: Anion Gap 8 (12-20); Blood Urea Nitrogen 16 mg/dL (9-16); Carbon Dioxide 28 mmol/L (22-29); Chloride 103 mmol/L (96-108); Creatinine Clr Calc Pharmacy 108.5; Estimated Glomerular Filt Rate > 60; Glucose Random 92 mg/dL (60-115); Potassium 4.4 mmol/L (3.3-5.1); Sodium 135 mmol/L (135-145)
[2024-01-13] VITALS (7 sets, daily range): BP systolic 113–145; BP diastolic 78–89; PULSE 72–89; RESP 16; TEMP 36.8; O2SAT 93–96; BMI 33.6
[2024-01-13] MEDS: Lactated Ringers 1,000 ML 100 ML IVCONT (06:31)
--- NOTE | 2024-01-13 06:39 | PC.NURSE ---
+ppp b/l good cms
--- NOTE | 2024-01-13 07:20 | P.CONAN_ITS ---
Documented by User: Jen Méndez NP 01/12/24 10:29 HPI - Anesthesia Eval Consult details Narrative: 54yo M for Left Knee Arthroscopy,partial medial meniscectomy PMFSH Active Problems Active Problems: All Active Problems Tear of medial meniscus of left knee (Acute) Left knee pain (Acute) Lumbar radiculopathy (Acute) Past Medical History Medical History (Updated 12/23/23 @ 11:31 by Cecilia Betancur RN) Depression Numbness Cough Osteoarthritis GERD (gastroesophageal reflux disease) Nicotine dependence IBS (irritable bowel syndrome) Essential tremor Sacroiliitis Obesity Sciatica Tinnitus History of broken nose Arthritis Hypercholesteremia HTN (hypertension) Kidney stones Family History Family history of problems with anesthesia: No Surgical History Surgical History (Updated 12/23/23 @ 11:33 by Cecilia Betancur RN) History of nasal surgery [place]orside teeth removed History of esophagogastroduodenoscopy (EGD) H/O right knee surgery H/O cervical spine surgery History of surgery on arm H/O colonoscopy History of Problems with Anesthesia: No Social History Social History Are you a primary health care specialist to a significant other at home: No Do you presently have visiting nurse or other home services: No Patient Tobacco Use Status: Current everyday Tobacco user Tobacco use type: Cigarette Cigarette Packs Per Day: 0.5 Cigarettes Per Day: 10.0 Use of substances other than those prescribed or required for medical reasons: No Have you been hit, kicked, punched, or otherwise hurt by someone within the past year? If so, by whom?: No Are you DNR?: No Advance Directives: No Advance Directives Information Provided: Yes Advance Directives on File: No Recently lost weight without trying: No Eating poorly because of decreased appetite: No Nutrition Risks: No Nutritional Risk Poor oral hygiene: Yes (missing molars on upper and lower) Meds Allergies Allergy/AdvReac Type Severity Reaction Status Date / Time bee pollen [Bee Stings] Allergy Severe ANAPHYLAXIS Verified 11/27/23 13:03 bees Allergy Unknown anaphylaxis Uncoded 11/27/23 13:03 DAIRY PRODUCTS Allergy Unknown Diarrhea Uncoded 12/22/23 10:42 Active Medications: Current Medications Cefazolin Sodium/Dextrose (Ancef) 2 gm in 50 mls @ 100 mls/hr IV PREOP ONE Stop: 01/13/24 05:57 Home Medications ?Medication ?Instructions ?Recorded ?Confirmed ?Last Taken ?Type lisinopril 5 mg tablet 1 tab PO DAILY 04/24/21 01/13/24 01/12/24 History meloxicam 15 mg tablet 1 tab PO DAILY 04/24/21 01/13/24 12/26/23 History simvastatin 20 mg tablet 1 tab PO DAILY 04/24/21 01/13/24 01/12/24 History metoprolol succinate 50 mg 1 tab PO DAILY 04/27/21 01/13/24 01/13/24 History tablet,extended release 24 hr coQ10 (ubiquinol) 100 mg capsule 100 mg PO DAILY 12/23/23 01/13/24 12/26/23 History pregabalin 150 mg capsule 150 mg PO BID 12/23/23 01/13/24 01/12/24 History Exam Height,Weight and Vital Signs: Height 5 ft 10 in Weight 104.326 kg Last Vital Signs Pulse 76 12/23/23 11:41 Resp 16 12/23/23 11:41 BP 127/73 12/23/23 11:41 Pulse Ox 95 12/23/23 11:41 O2 Del Method Room Air 12/23/23 11:41 Pertinent Lab Results Pertinent Lab Results: Laboratory Tests 12/23/23 12:19 WBC 8.6 RBC 4.85 Hgb 15.3 Hct 44.5 MCV 91.8 MCH 31.5 MCHC 34.4 RDW 14.6 Plt Count 246 MPV 9.8 Absolute Nucleated RBC 0.000 Nucleated RBC % (auto) 0.0 Sodium 135 Potassium 4.4 Chloride 103 Carbon Dioxide 28 Anion Gap 8 L BUN 16 Creatinine 0.93 Estim Creat Clear Calc 108.5 Estimated GFR > 60 Random Glucose 92 Calcium 9.0 Narrative Narrative: EKG 12/2023 Vent. Rate : 069 BPM Atrial Rate : 069 BPM P-R Int : 144 ms QRS Dur : 074 ms QT Int : 362 ms P-R-T Axes : 050 028 034 degrees QTc Int : 387 ms Normal sinus rhythm ST elevation, consider early repolarization Borderline ECG When compared with ECG of 04-SEP-2008 22:13, No significant change was found Assessment and Plan Assessment Anesthesia Assessment: Chart Reviewed Final Anesthetic Review Family History of Problems with Anesthesia: No History of Problems with Anesthesia: No Documented by User: Rosa Sheriff DO 01/13/24 07:22 PMFSH Past Medical History Medical History (Updated 12/23/23 @ 11:31 by Cecilia Betancur RN) Depression Numbness Cough Osteoarthritis GERD (gastroesophageal reflux disease) Nicotine dependence IBS (irritable bowel syndrome) Essential tremor Sacroiliitis Obesity Sciatica Tinnitus History of broken nose Arthritis Hypercholesteremia HTN (hypertension) Kidney stones Family History Family history of problems with anesthesia: No Surgical History Surgical History (Updated 12/23/23 @ 11:33 by Cecilia Betancur RN) History of nasal surgery Harborside teeth removed History of esophagogastroduodenoscopy (EGD) H/O right knee surgery H/O cervical spine surgery History of surgery on arm H/O colonoscopy History of Problems with Anesthesia: No Social History Social History Are you a primary health care specialist to a significant other at home: No Do you presently have visiting nurse or other home services: No Patient Tobacco Use Status: Current everyday Tobacco user Tobacco use type: Cigarette Cigarette Packs Per Day: 0.5 Cigarettes Per Day: 10.0 Use of substances other than those prescribed or required for medical reasons: No Have you been hit, kicked, punched, or otherwise hurt by someone within the past year? If so, by whom?: No Are you DNR?: No Advance Directives: No Advance Directives Information Provided: Yes Advance Directives on File: No Recently lost weight without trying: No Eating poorly because of decreased appetite: No Nutrition Risks: No Nutritional Risk Poor oral hygiene: Yes (missing molars on upper and lower) Meds Allergies Allergy/AdvReac Type Severity Reaction Status Date / Time bee pollen [Bee Stings] Allergy Severe ANAPHYLAXIS Verified 11/27/23 13:03 bees Allergy Unknown anaphylaxis Uncoded 11/27/23 13:03 DAIRY PRODUCTS Allergy Unknown Diarrhea Uncoded 12/22/23 10:42 Home Medications ?Medication ?Instructions ?Recorded ?Confirmed ?Last Taken ?Type lisinopril 5 mg tablet 1 tab PO DAILY 04/24/21 01/13/24 01/12/24 History meloxicam 15 mg tablet 1 tab PO DAILY 04/24/21 01/13/24 12/26/23 History simvastatin 20 mg tablet 1 tab PO DAILY 04/24/21 01/13/24 01/12/24 History metoprolol succinate 50 mg 1 tab PO DAILY 04/27/21 01/13/24 01/13/24 History tablet,extended release 24 hr coQ10 (ubiquinol) 100 mg capsule 100 mg PO DAILY 12/23/23 01/13/24 12/26/23 History pregabalin 150 mg capsule 150 mg PO BID 12/23/23 01/13/24 01/12/24 History Exam Exam Date and Time: 01/13/24 0720 Height,Weight and Vital Signs: Height 5 ft 10 in Weight 104.326 kg Last Vital Signs Pulse 76 12/23/23 11:41 Resp 16 12/23/23 11:41 BP 127/73 12/23/23 11:41 Pulse Ox 95 12/23/23 11:41 O2 Del Method Room Air 12/23/23 11:41 Vital Signs Pulse Rate 76 12/23/23 11:41 Respiratory Rate 16 12/23/23 11:41 Blood Pressure 127/73 12/23/23 11:41 Pulse Oximetry 95 12/23/23 11:41 Oxygen Delivery Method Room Air 12/23/23 11:41 Pulse Rate 76 12/23/23 11:41 Respiratory Rate 16 12/23/23 11:41 Blood Pressure 127/73 12/23/23 11:41 Pulse Oximetry 95 12/23/23 11:41 Oxygen Delivery Method Room Air 12/23/23 11:41 Airway Mallampati Class: II TM Dist: >3cm Neck ROM: Full Loose/Missing/Broken Teeth: No (patient denies any loose or broken teeth) Heart: S1S2 Lungs: CTAB Assessment and Plan Assessment Anesthesia Assessment: Anesthesia Plan Discussed and Chart Reviewed Final Anesthetic Review Family History of Problems with Anesthesia: No History of Problems with Anesthesia: No NPO: Yes ASA Class: II Final Preanesthetic Review: No Changes in Pt Med Stat, Meds/Allgs Chart Reviewed, Consent Obtained/Reviewed and Anes Risks/Benef Reviewed Patient Risk: Low Procedure Risk: Low Anesthetic Plan Anesthetic Plan: GA and Agree w/ Assess. and Plan Disposition: Standard PACU
[2024-01-13] MEDS: oxyCODONE HCl Immed Release 5 MG TABLET PO (08:40)
[2024-01-13] MEDS: fentaNYL citrate/PF 100 MCG/2 ML VIAL 50 MCG IVPUSH ×4 (08:42→09:03)
--- NOTE | 2024-01-13 08:42 | PM.OP ---
Brief Operative Note Date of Service: 01/13/24 Pre-op diagnosis: Left knee medial meniscus tear, left knee degenerative joint disease Post-op diagnosis: same Procedure: Left knee diagnostic arthroscopy with left knee arthroscopic partial medial meniscectomy, left knee arthroscopic chondroplasty of the undersurface of the patella as well as the medial femoral condyle Implants: None Surgeon: Drew Cabrera MD Anesthesia: GLMA Was an Director Clinical Research used for this Procedure?: No Estimated blood loss (mL): 10 Pathology: none sent Condition: stable Disposition: PACU
--- NOTE | 2024-01-13 08:43 | W.PM.OPN ---
Operative Note Operative Note Date of Service: 01/13/24 Narrative: After the patient was identified as Ernie English Sr. and his left knee was initialed by myself they were brought to the operating room where general anesthesia was induced by the anesthesiologist in routine fashion. The patient was given 2 g of IV Ancef preoperatively for infection prophylaxis. The patient's left lower extremity was prepped and draped in sterile fashion. A formal time-out was completed. Marcaine was injected into the planned incision sites as well as the patient's left knee joint. A #11 scalpel blade was used to make an anterolateral portal 1 cm proximal to the joint line and 1 cm lateral to the patellar tendon. Blunt trocar technique was used to enter the suprapatellar pouch with the knee in extension. Diagnostic arthroscopy showed multiple bands of thickened plica which would be excised at the end of the procedure. There were no loose bodies or abnormalities found in either the medial or lateral gutters. The articular surface of the patella showed diffuse grades 1 and 2 degenerative changes. The trochlear groove articular surface showed diffuse grades 1 and 2 degenerative changes. The patient's knee was flexed to 45 degrees and a valgus force was placed upon it. The medial compartment was entered. An anteromedial portal was made 1 cm proximal to the joint line and 1 cm medial to the patellar tendon. Probing of the medial meniscus showed a radial tear of the posterior horn. A partial medial meniscectomy was performed using the arthroscopic shaver. Following the partial meniscectomy the remainder of the meniscus tissue was stable. There were diffuse grades 1 and 2 degenerative changes of the medial femoral condyle as well as grade 1 degenerative changes of the medial tibial plateau. The articular surface of the medial femoral condyle was then made smooth using the arthroscopic shaver. The articular surface of the medial tibial plateau was already smooth so no chondroplasty was indicated. The patient's knee was placed into a neutral position. There was no injury to the anterior cruciate ligament. The patient's knee was then placed in the figure of 4 position and the lateral compartment was entered. There was no evidence of lateral meniscus tearing. There were minimal degenerative changes of the lateral femoral condyle and lateral tibial plateau. The patient's knee was once again brought into extension and the suprapatellar pouch was entered. The arthroscopic shaver and the ArthroCare Wand were used to excise the thickened bands of plica. The undersurface of the patella was then made smooth using the arthroscopic shaver. The articular surface of the trochlear groove was already smooth so no chondroplasty was indicated. The knee joint was irrigated and then drained. All arthroscopic instruments were removed. The 2 portals were closed with 3-0 nylon interrupted suture. The knee joint was injected with Marcaine. Dry sterile dressing and Ramu bandages were placed over the patient's knee. The patient was awoken and extubated in the operating room. The patient was transferred to the recovery room in stable condition.
[2024-01-13] MEDS: cefTRIAXone sodium 1 GM VIAL IVPUSH (09:05)
--- OUTSIDE RECORDS SUMMARY | 2024-01-18 04:34 | XMS_ITS | Patient Health Record ---
Author Organization [facility] Address [address] [place] [id number] Care Team Providers Care Machine Fancy Stitcher Name Role Phone Marcial LINTON, Daniel Primary Care Provider Robert Lassiter Unavailable [phone] ALLERGIES Allergen (clinical drug ingredient) Drug/Non Drug Allergy documented on EMR Reaction Allergy Type Onset Date Status Bee Sting Unknown Allergy Active milk products (uncoded) Unknown Allergy Active REASON FOR REFERRAL No Information MEDICATIONS Medication SIG (Take, Route, Frequency, Duration) Notes Start Date End Date Status Metoprolol Succinate ER 50 MG Oral for 30 Not-Taking Amoxicillin 875 MG Oral for 10 Not-Taking Multivitamin - 1 tablet Orally Once a day for 30 day(s) Active CoQ10 200 MG as directed Orally Active Omeprazole 20 MG Oral for 30 A ctive Lisinopril 5 MG Oral for 30 Ac tive Simvastatin 20 MG Oral for 30 Active Meloxicam 15 MG Oral for 30 Ac tive IMMUNIZATIONS Vaccine Route Administration Date Status Comme nts Influenza Unknown 10/08/2020 Administered SOCIAL HISTORY Tobacco Use: Social History Observation Description Date Details (start date - stop date) Former Smoker NA - NA Sex Assigned At : Social History Observation Description Sex Assigned At Unknown Tobacco Use/Smoking Question Answer Notes Patient is a former smoker How long has it been since you last smoked? > 10 years Alcohol Screen Question Answer Notes Did you have a drink contain ing alcohol in the past year? Yes How often did you have a dri nk containing alcohol in the past year? 2 to 4 times a month (2 points) How many drinks did you have on a typical day when you were drinking in the past year? 1 or 2 drinks (0 point) How often did you have 6 or more drinks on one occasion in the past year? Never (0 point) Points 2 Interpretation Negative PROBLEMS Problem Type ICD Code Onset Dates Problem Status W/U Status Risk SNOMED Code Notes Problem Gastroesophageal reflux disease, unspecified whether esophagitis present (K21.9) Active confirmed 235341365 Problem Encounter for screening for malignant neoplasm of colon (Z12.11) Active confirmed 512958512 Problem Diverticulosis of colon (K57.30) Active confirmed Diverticulosi s of colon (026353011) Problem Gastroesophageal reflux (K21.9) Active confirmed Esophageal reflux finding (408963271) PLAN OF TREATMENT Pending Test Test Name Order Date Pathology 04/27/2021 Future Test Test Name Order Date UPPER GI ENDOSCOPY 03/03/2021 COLONOSCOPY 03/03/2021 Insurance Providers Payer Name Payer Address Payer Phone Subscriber Number Group Number Insured Name Patient Relationship to Insured Coverage Start Date Coverage End Date [facility] [address] [address] [place] [address] [id number] MARY CARMEN GARY Self - patient is the insured MEDICAL (GENERAL) HISTORY Medical History History ICD Code Hx of kidney stones Hypertension Hypercholesterolemia Reports a negative colonoscopy at age 41 Arthritis Denies [place],DM,CVA,Lung disease,renal dise ase GERD Surgical History Surgery Date(Month/Year) Right knee C-spine 4,5,6 Arm surgery for a dog bite Broken nose
== END 2024-01-13 09:49 | disposition home or self-care (01) ==
PROVIDERS: Nurse Practitioner; PCP Family Medicine; Visit Provider Orthopaedic Surgery
PROC: (CPT 29870; principal; 2024-01-13 07:30)
DX: S83.242A Other tear of medial meniscus, current injury, left knee, initial encounter (principal); M17.12 Unilateral primary osteoarthritis, left knee; M23.52 Chronic instability of knee, left knee; M67.52 Plica syndrome, left knee; I10 Essential (primary) hypertension; E78.00 Pure hypercholesterolemia, unspecified; Z79.82 Long term (current) use of aspirin; Z79.899 Other long term (current) drug therapy; E73.9 Lactose intolerance, unspecified; Z98.890 Other specified postprocedural states; F17.290 Nicotine dependence, other tobacco product, uncomplicated; X58.XXXA Exposure to other specified factors, initial encounter; Y93.9 Activity, unspecified; Y92.9 Unspecified place or not applicable; Y99.9 Unspecified external cause status
CPT/HCPCS: 29881; 36415; 80048; 85027; 93005; J0131; J0171; J0690; J0696; J1885; J2003; J2250; J2371; J2704; J2795; J3010

== ENCOUNTER → 2024-01-13 05:58 | Outpatient (BNV) | payer OTHER, SELFPAY | PROVIDERS: PCP Family Medicine; Visit Provider Orthopaedic Surgery | DX: S83.242A Other tear of medial meniscus, current injury, left knee, initial encounter (principal) | CPT/HCPCS: 29881 ==

== ENCOUNTER 2024-01-26 07:47 | Outpatient (AMB) | payer OTHER, SELFPAY ==
--- NOTE | 2024-01-26 07:49 | A.OFFVIS_ITS ---
Intake Visit Reasons: Bilateral knee pains Intake Note: Ernie is a 54 year old male who presents today after undergoing a left knee arthroscopy on 01/13/24. Patient reports he is doing well. He reports mild intermittent discomfort in his left knee. He denies any fevers or chills. Today is most concerned with progressively worsening right knee pain and giving way. The patient describes his right knee pain as sharp and severe in nature. His right knee pain has gotten worse over the last year in spite of continued non operative treatments. He states that his right knee will give out several times per day. Has failed the last 6 weeks of conservative treatment which has concluded Tylenol, anti-inflammatory medicines, physical therapy exercises and topical creams. He did undergo right knee arthroscopic surgery several years ago by another surgeon. He got very good relief from that procedure. Allergies bee pollen [Bee Stings] Allergy (Severe, Verified 01/26/24 07:52) ANAPHYLAXIS bees Allergy (Unknown, Uncoded 11/27/23 13:03) anaphylaxis DAIRY PRODUCTS Allergy (Unknown, Uncoded 12/22/23 10:42) Diarrhea Medication List - Last Reconciled 01/26/24 by Drew Cabrera MD coQ10 (ubiquinol) 100 mg PO DAILY lisinopril 1 tab PO DAILY meloxicam 1 tab PO DAILY metoprolol succinate ER 1 tab PO DAILY oxycodone 5 mg PO Q6H PRN pregabalin 150 mg PO BID simvastatin 1 tab PO DAILY PFSH Medical History Depression Numbness Cough Osteoarthritis GERD (gastroesophageal reflux disease) Nicotine dependence IBS (irritable bowel syndrome) Essential tremor Sacroiliitis Obesity Sciatica Tinnitus History of broken nose Arthritis Hypercholesteremia HTN (hypertension) Kidney stones Surgical History History of nasal surgery [place] teeth removed History of esophagogastroduodenoscopy (EGD) H/O right knee surgery H/O cervical spine surgery History of surgery on arm H/O colonoscopy Social History Are you a primary children's zoo caretaker to a significant other at home: No Do you presently have visiting nurse or other home services: No Patient Tobacco Use Status: Current everyday Tobacco user Tobacco use type: Cigarette Cigarette Packs Per Day: 0.5 Cigarettes Per Day: 10.0 Physical Exam Const Other: Well-nourished well-developed very friendly male awake alert and oriented x3 in no acute distress Extrem Other: Left knee examination shows that the surgical incisions are healing well, mini mal discomfort with range of motion, no instability Right knee examination shows a minimal effusion, minimal crepitus with range of motion, tenderness along his medial joint line, positive Rip's test, no instability Results Reviewed Results Reviewed: Standing full weight-bearing x-rays of the patient's right knee taken previously show mild diffuse joint space narrowing, no acute bony abnormalities Assessment & Plan Assessment & Plan (1) Left knee pain: Code(s): M25.562 - Pain in left knee Category: Medical Plan Mr. English is doing well after undergoing left knee arthroscopic surgery on 01/13/2024. His sutures were removed and Steri-Strips placed over his incisions. Will gradually progress to activities as tolerated. The patient does have progressively worsening right knee pain and mechanical symptoms due to a medial meniscus tear. I had a lengthy discussion with the patient regarding the treatment options. At this point the patient appears to be failing continued non operative treatments. The risks and benefits of right knee arthroscopic surgery were discussed at length with the patient. The patient is interested in proceeding with surgery early next year. He will contact my office to pick a surgery date when he is ready to do so. Surgery will most likely involve right knee arthroscopic partial medial meniscectomy. The patient will follow-up as instructed. Feel free to call me at any time should questions regarding his orthopedic management arise. Coding Level of Care Code Global (69106) Diagnoses Left knee pain M25.562
--- OUTSIDE RECORDS SUMMARY | 2024-01-26 07:49 | XMS_ITS | Patient Health Record ---
Author Organization [facility] Address [address] [place] [id number] Care Team Providers Care Pathology Collector Name Role Phone Marcial LINTON, Daniel Primary Care Provider Robert Lassiter Unavailable [phone] ALLERGIES Allergen (clinical drug ingredient) Drug/Non Drug [...] unspecified whether esophagitis present (K21.9) Active confirmed 406308417 Problem Encounter for screening for malignant neoplasm of colon (Z12.11) Active confirmed 771986160 Problem Diverticulosis of colon (K57.30) Active confirmed Diverticulosi s of colon (342369509) Problem Gastroesophageal reflux (K21.9) Active confirmed Esophageal reflux finding (041569784) PLAN OF TREATMENT Pending Test Test Name Order Date Pathology 04/27/2021 Future Test Test Name Order Date UPPER GI ENDOSCOPY 03/03/2021 COLONOSCOPY 03/03/2021 Insurance Providers Payer Name Payer Address Payer Phone Subscriber Number Group Number Insured Name Patient Relationship to Insured Coverage Start Date Coverage End Date [facility] [address] [address] [place] [address] [id number] MARY CARMEN GARY Self - patient is the insured MEDICAL (GENERAL) HISTORY Medical History History ICD Code Hx of kidney stones Hypertension Hypercholesterolemia Reports a negative colonoscopy at age 41 Arthritis Denies [place],DM,CVA,Lung disease,renal dise ase GERD Surgical History Surgery Date(Month/Year) Right knee C-spine 4,5,6 Arm surgery for a dog bite Broken nose
== END 2024-01-26 08:09 | disposition home or self-care (01) ==
PROVIDERS: PCP Family Medicine; Visit Provider Orthopaedic Surgery
DX: M25.562 Pain in left knee (principal)
CPT/HCPCS: 99024

== ENCOUNTER → 2024-01-26 07:47 | Outpatient (BNVA) | payer OTHER, SELFPAY | PROVIDERS: PCP Family Medicine; Visit Provider Orthopaedic Surgery ==

== ENCOUNTER 2024-03-19 08:25 | Outpatient (AMB) | payer OTHER, SELFPAY ==
--- NOTE | 2024-03-19 09:00 | MHC.OFFWIV ---
Intake Vital Signs 03/19/24 09:01 Weight 233 lb BP 122/90 H Blood Pressure Location Rt brachial Position Sitting Pulse 74 Pulse Source Pulse Oximeter Temp 98.2 F Temp Source Oral Pulse Oximetry (%) 98 Oxygen Delivery Method Room Air Intake Visit Reasons: EP vomiting, diarrhea, can't sleep/eat Intake Note: Patient here for vomiting, diarrhea that started a couple of days ago. Patient Tobacco Use Status: Current everyday Tobacco user Allergies bee pollen [Bee Stings] Allergy (Severe, Verified 03/19/24 09:) ANAPHYLAXIS bees Allergy (Unknown, Uncoded 03/19/24 09:) anaphylaxis DAIRY PRODUCTS Allergy (Unknown, Uncoded 03/19/24 09:) Diarrhea Do you need a note to return to daycare/school/sports/work: Yes HPI HPI Comments History of Present Illness Details History The patient is a 54-year-old male presenting with persistent cough, inability to retain oral intake, and nausea. - Cough has persisted for several weeks, affecting sleep quality. - Since Tuesday, the patient has experienced nausea and vomiting primarily clear liquids following any intake. - The patient denies abdominal pain but indicates that bowel movements consist of liquid due to inability to retain intake. - No significant relief was attained from [id number] Benadryl. - The patient reported a family history of similar symptoms in his and son, indicating potential infectious spread. Physical Exam General: Cooperative, healthy appearing, comfortable and no acute distress Orientation/consciousness: Patient oriented x3 Limitations: No limitations Head: Normal to inspection Ears: Hearing grossly normal bilaterally, external ears normal and TM's normal bilaterally Nose: Normal external nose present, Normal nares present and No nasal discharge present Face and sinus: Normal facial exam and Yes sinuses nontender Mouth: Normal oral and palatal mucosa present and moist mucous membranes Throat: Yes tonsils normal, Yes uvula midline. Posterior oropharynx erythema Eyes: Appearance normal, both eyes and all related structures Neck: Normal visual inspection Respiratory: Clear to auscultation bilaterally. Normal respiratory effort, able to speak in complete sentences, no respiratory distress, not tachypneic, no tripod positioning and no use of accessory muscles Cardiovascular: Regular rate and rhythm. Normal S1 and S2 Skin: No rashes or lesions noted Neuro: Patient oriented x3 Extremities: Normal to inspection and Yes no clubbing, cyanosis or edema [facility] Medical History Depression Numbness Cough Osteoarthritis GERD (gastroesophageal reflux disease) Nicotine dependence IBS (irritable bowel syndrome) Essential tremor Sacroiliitis Obesity Sciatica Tinnitus History of broken nose Arthritis Hypercholesteremia HTN (hypertension) Kidney stones Surgical History History of nasal surgery [place] teeth removed History of esophagogastroduodenoscopy (EGD) H/O right knee surgery H/O cervical spine surgery History of surgery on arm H/O colonoscopy Social History Are you a primary caregivers non medical to a significant other at home: No Do you presently have visiting nurse or other home services: No Patient Tobacco Use Status: Current everyday Tobacco user Tobacco use type: Cigarette Cigarette Packs Per Day: 0.5 Cigarettes Per Day: 10.0 Review of Systems Const All systems reviewed & are unremarkable except as noted in HPI and below Physical Exam Vital Signs: Last Vital Signs Temp 98.2 F 03/19/24 09:01 Pulse 74 03/19/24 09:01 BP 122/90 H 03/19/24 09:01 Pulse Ox 98 03/19/24 09:01 Oxygen Delivery Method Room Air 03/19/24 09:01 Assessment & Plan Assessment & Plan (1) Viral upper respiratory illness: Code(s): J06.9 - Acute upper respiratory infection, unspecified Plan: Plan The patient presents with symptoms indicative of influenza, to be confirmed by relevant testing. Flu, Covid and RSV testing has been sent. Antiviral treatment was not initiated due to the delayed presentation. The management plan includes symptomatic treatment, focusing on rehydration and dietary modifications, specifically emphasizing a bland diet to manage nausea. The patient is advised on the use of [id number] antiemetic agents to improve intake and hydration. Considering the nature of the presentation and family history, the condition is presumed infectious but expected to resolve with time and supportive care. Close observation and symptomatic care remain paramount. Wrote work note for 3 days. Patient was informed and verbally consented to the use of an ambient scribe for clinic note documentation during this visit Orders: Orders SARS-CoV2/FLU/RSV Today R09.89 - Other specified symptoms and signs involving the circulatory and respiratory systems Medications: New ondansetron 4 mg PO Q8H PRN 10 tabs 0RF nausea and vomiting Coding Level of Care Code New Pt Level 3 (80829) Diagnoses Viral upper respiratory illness J06.9
[2024-03-19 09:01] VITALS: BP 122/90; PULSE 74; TEMP 36.8; O2SAT 98
== END 2024-03-19 09:25 | disposition home or self-care (01) ==
PROVIDERS: PCP Family Medicine; Visit Provider Physician Assistant
DX: J06.9 Acute upper respiratory infection, unspecified (principal)

== ENCOUNTER 2024-03-19 08:25 | Outpatient (REF) | payer OTHER, SELFPAY ==
[2024-03-19 10:57] LABS: Influenza A PCR POSITIVE (Negative); Influenza B PCR NEGATIVE (Negative); Resp Syncy Virus RNA Qual PCR NEGATIVE (Negative); SARS COV2 PCR INHOUSE NEGATIVE (Negative)
== END 2024-03-19 08:26 | disposition home or self-care (01) ==
LOC: HO.LNP 08:25
PROVIDERS: PCP Family Medicine; Visit Provider Physician Assistant
DX: R09.89 Other specified symptoms and signs involving the circulatory and respiratory systems (principal); J06.9 Acute upper respiratory infection, unspecified
CPT/HCPCS: 0241U

== ENCOUNTER 2024-05-22 07:33 | Outpatient (AMB) | payer OTHER, SELFPAY ==
--- NOTE | 2024-05-22 07:43 | A.OFFVIS_ITS ---
Intake Visit Reasons: Right knee pain and giving way Intake Note: Ernie is a 54 year old male who presents with complaints of progressively worsening right knee pain and giving way. The patient did undergo left knee arthroscopic surgery on 01/13/2024. He denies any pain in his left knee. He states that he underwent right knee arthroscopic surgery by another provider in 2003. He got very good relief from that surgery initially. He reaggravated his right knee approximately 1 year ago. Since that time his symptoms have gotten progressively worse in spite of continued non operative treatments. He has failed the last 6 weeks of conservative treatment which has included physical therapy exercises, a home exercise program, Tylenol, anti-inflammatory medicines and gabapentin. He states that his right knee will give out several times per day. At this point his right knee pain and mechanical symptoms are interfering with his activities of daily living, his ability to climb ladders and his ability to sleep well through the night. Allergies bee pollen [Bee Stings] Allergy (Severe, Verified 05/22/24 07:45) ANAPHYLAXIS bees Allergy (Unknown, Uncoded 05/22/24 07:45) anaphylaxis DAIRY PRODUCTS Allergy (Unknown, Uncoded 05/22/24 07:45) Diarrhea Medication List - Last Reconciled 05/22/24 by Drew Cabrera MD coQ10 (ubiquinol) 100 mg PO DAILY lisinopril 1 tab PO DAILY meloxicam 1 tab PO DAILY metoprolol succinate ER 1 tab PO DAILY ondansetron 4 mg PO Q8H PRN pregabalin 150 mg PO BID simvastatin 1 tab PO DAILY PFSH Medical History Depression Numbness Cough Osteoarthritis GERD (gastroesophageal reflux disease) Nicotine dependence IBS (irritable bowel syndrome) Essential tremor Sacroiliitis Obesity Sciatica Tinnitus History of broken nose Arthritis Hypercholesteremia HTN (hypertension) Kidney stones Surgical History History of nasal surgery [place] teeth removed History of esophagogastroduodenoscopy (EGD) H/O right knee surgery H/O cervical spine surgery History of surgery on arm H/O colonoscopy Social History Are you a primary foster care case manager to a significant other at home: No Do you presently have visiting nurse or other home services: No Patient Tobacco Use Status: Current everyday Tobacco user Tobacco use type: Cigarette Cigarette Packs Per Day: 0.5 Cigarettes Per Day: 10.0 Physical Exam Const Other: Well-nourished well-developed very friendly male awake alert and oriented x3 in no acute distress Extrem Other: Bilateral lower extremity examination shows good capillary refill, no skin lesions noted, normal sensation light touch Right knee examination shows a minimal effusion, mild crepitus with range of motion, tenderness along his medial joint line, positive Rip's test, no instability Results Reviewed Results Reviewed: Standing full weight-bearing x-rays of the patient's right knee show mild diffuse joint space narrowing, no acute bony abnormalities Assessment & Plan Assessment & Plan (1) Tear of medial meniscus of right knee: Code(s): S83.241A - Other tear of medial meniscus, current injury, right knee, initial encounter Category: Medical Plan Mr. English presents with progressively worsening right knee pain and mechanical symptoms due to a medial meniscus tear. I had a lengthy discussion with the patient regarding the treatment options. At this point he has failed continued non operative treatments. The risks and benefits of right knee arthroscopic surgery were discussed at length with the patient. The patient wishes to proceed. He does understand that he may not get 100% relief of his symptoms depending on the severity of his degenerative changes. Surgery will most likely involve right knee arthroscopic partial medial meniscectomy. The patient will be scheduled for next available date. He will follow-up as instructed. Feel free to call me at any time should questions regarding his orthopedic management arise. I spent 21 minutes in reviewing the patient's records and imaging studies, seeing the patient and documenting in the medical record. Coding Level of Care Code Est Pt Level 3 (80783) Complex EM visit Add On G2211 Diagnoses Tear of medial meniscus of right knee S83.241A
== END 2024-05-22 07:57 | disposition home or self-care (01) ==
LOC: HO.HOS 07:34
PROVIDERS: PCP Family Medicine; Visit Provider Orthopaedic Surgery
DX: S83.241A Other tear of medial meniscus, current injury, right knee, initial encounter (principal)
CPT/HCPCS: 99213

== ENCOUNTER 2024-06-29 09:18 | Outpatient (REF) | payer OTHER, SELFPAY ==
--- OUTSIDE RECORDS SUMMARY | 2024-06-29 09:31 | XMS_ITS | Patient Health Record ---
Author Organization [facility] Address [address] [place] [id number] Care Team Providers Care Keyboard Operator Name Role Phone Marcial LINTON, Daniel Primary Care Provider Robert Lassiter Unavailable [phone] Allergies Allergen (clinical drug ingredient) Drug/Non Drug [...] Problem Status W/U Status Risk Notes Problem [id number] Encounter for screening for malignant neoplasm of colon (Z12.11) Active confirmed Problem Gastroesophageal reflux (K21.9) Active confirmed Problem Diverticulosis of colon (339000187) Diverticulosis of colon (K57.30) Active confirmed Problem 752428272 Gastroesophageal reflux disease, unspecified whether esophagitis present (K21.9) Active confirmed Plan Of Treatment Pending Test Test Name Order Date Pathology 04/27/2021 Future Test Test Name Order Date UPPER GI ENDOSCOPY 03/03/2021 COLONOSCOPY 03/03/2021 Insurance Providers Payer Name Payer Address Payer Phone Subscriber Number Group Number Insured Name Patient Relationship to Insured Coverage Start Date Coverage End Date [facility] [address] [address] [place] [address] [id number] MARY CARMEN GARY Self - patient is the insured Medical (General) History Medical History History ICD Code Hx of kidney stones Hypertension Hypercholesterolemia Reports a negative colonoscopy at age 41 Arthritis Denies DC,DM,CVA,Lung disease,renal dise ase GERD Surgical History Surgery Date(Month/Year) Right knee C-spine 4,5,6 Arm surgery for a dog bite Broken nose
[2024-06-29 10:40] LABS: Alanine Aminotransferase 21 U/L (0-40); Anion Gap 12 (12-20); Aspartate Amino Transferase 21 U/L (5-37); Blood Urea Nitrogen 13 mg/dL (9-16); Carbon Dioxide 26 mmol/L (22-29); Chloride 107 mmol/L (96-108); Estimated Glomerular Filt Rate > 60; Potassium 4.5 mmol/L (3.3-5.1); Sodium 140 mmol/L (135-145)
== END 2024-06-29 09:19 | disposition home or self-care (01) ==
LOC: HO.LAB 09:18
PROVIDERS: PCP Family Medicine; Visit Provider Family Medicine
DX: I10 Essential (primary) hypertension (principal); E78.00 Pure hypercholesterolemia, unspecified; Z79.02 Long term (current) use of antithrombotics/antiplatelets
CPT/HCPCS: 36415; 80051; 82550; 82565; 84450; 84460; 84520

== ENCOUNTER 2024-07-13 05:51 | Day surgery (SDC) | payer OTHER, SELFPAY ==
--- OUTSIDE RECORDS SUMMARY | 2024-06-28 14:18 | XMS_ITS | Patient Health Record ---
Author Organization [facility] Address [address] [place] [id number] Care Team Providers Care Credentialer Name Role Phone Marcial LINTON, Daniel Primary Care Provider Robert Lassiter Unavailable [phone] Allergies Allergen (clinical drug ingredient) Drug/Non Drug Allergy documented on EMR Reaction Allergy Type Onset Date Status Bee Sting Unknown Allergy Active milk products (uncoded) Unknown Allergy Active Reason For Referral No Information Medications Medication SIG (Take, Route, Frequency, Duration) Notes [...] 15 MG Oral for 30 Ac tive Immunizations Vaccine Route Administration Date Status Comme nts Influenza Unknown 10/08/2020 Administered Social History Tobacco Use: Social History Observation Description Date Details (start date - stop date) Former Smoker NA - NA Tobacco Use/Smoking Question Answer Notes Patient is [...] Never (0 point) Points 2 Interpretation Negative Section Notes: Currently smokes cigars; occ . alcohol Problems Problem Type SNOMED Code ICD Code Onset Dates Problem Status W/U Status Risk Notes Problem 310462096 Encounter for screening for malignant neoplasm of colon (Z12.11) Active confirmed Problem Gastroesophageal reflux (K21.9) Active confirmed Problem Diverticulosis of colon (074600665) Diverticulosis of colon (K57.30) Active confirmed Problem 370007065 Gastroesophageal reflux disease, unspecified whether esophagitis present (K21.9) Active confirmed Plan Of Treatment Pending Test Test Name Order Date Pathology 04/27/2021 Future Test Test Name Order Date UPPER GI ENDOSCOPY 03/03/2021 COLONOSCOPY 03/03/2021 Insurance Providers Payer Name Payer Address Payer Phone Subscriber Number Group Number Insured Name Patient Relationship to Insured Coverage Start Date Coverage End Date [facility] [address] [address] [place] [address] [phone] [id number] MARY CARMEN GRAY Self - patient is the insured Medical (General) History Medical History History ICD Code Hx of kidney stones Hypertension Hypercholesterolemia Reports a negative colonoscopy at age 41 Arthritis Denies AL,DM,CVA,Lung disease,renal dise ase GERD Surgical History Surgery Date(Month/Year) Right knee C-spine 4,5,6 Arm surgery for a dog bite Broken nose
[2024-06-29 09:43] VITALS: BP 134/79; PULSE 75; RESP 16; O2SAT 95; BMI 33.4
[2024-07-13] VITALS (7 sets, daily range): BP systolic 106–134; BP diastolic 55–85; PULSE 66–76; RESP 14–18; TEMP 36.1–36.5; O2SAT 94–97; BMI 33.7
--- NOTE | 2024-07-13 06:23 | PC.NURSE ---
Patient arrived to preop wearing silver wedding band x1 and gold necklace x1. Patient expressed that he couldn't remove these items as they are very personal and contain the ashes of loved one . This nurse explained to patient that necklace can be worn on wrist however, for his safety, nothing can be around the neck during surgery. Patient understanding. States I would rather give it to my in waiting room . Patient escorted by this nurse to waiting room to give jewelry.
[2024-07-13] MEDS: Lactated Ringers 1,000 ML 100 ML IVCONT (06:39)
--- NOTE | 2024-07-13 07:25 | P.CONAN_ITS ---
Documented by User: Jen Méndez NP 07/12/24 09:34 HPI - Anesthesia Eval Consult details Narrative: 54yo M for Right Knee Arthroscopy partial medial meniscectomy s/p Left side 01/2024 with GA-LMA 5 PMFSH Active Problems Active Problems: All Active Problems Tear of medial meniscus of right knee (Acute) Viral upper respiratory illness (Acute) Tear of medial meniscus of left knee (Acute) Left knee pain (Acute) Lumbar radiculopathy (Acute) Past Medical History Medical History (Updated 06/29/24 @ 10:20 by Sarah Rios, NATHAN) Snores Recent bereavement Depression Numbness Cough Osteoarthritis GERD (gastroesophageal reflux disease) Nicotine dependence IBS (irritable bowel syndrome) Essential tremor Sacroiliitis Obesity Sciatica Tinnitus History of broken nose Arthritis Hypercholesteremia HTN (hypertension) Kidney stones Family History Family history of problems with anesthesia: No Surgical History Surgical History (Updated 07/13/24 @ 06:11 by Wanda Dunaway RN) H/O arthroscopy of left knee History of nasal surgery [place] teeth removed History of esophagogastroduodenoscopy (EGD) H/O right knee surgery H/O cervical spine surgery History of surgery on arm H/O colonoscopy History of Problems with Anesthesia: No Social History Social History (Updated 06/29/24 @ 10:13 by Sarah Rios, NATHAN) Household Members: Spouse Housing: House Are you a primary lawn care specialist to a significant other at home: No Do you presently have visiting nurse or other home services: No Patient Tobacco Use Status: Current everyday Tobacco user Tobacco use type: Cigarette Smoked in Last 30 Days: Yes Second Hand Smoke Exposure: Yes ( smokes also) Use of substances other than those prescribed or required for medical reasons: No Have you been hit, kicked, punched, or otherwise hurt by someone within the past year? If so, by whom?: No Are you DNR?: No Advance Directives: No Advance Directives Information Provided: Yes Advance Directives on File: No Poor oral hygiene: No Meds Allergies Allergy/AdvReac Type Severity Reaction Status Date / Time bee pollen [Bee Stings] Allergy Severe ANAPHYLAXIS Verified 07/13/24 06:10 DAIRY PRODUCTS Allergy Severe Diarrhea Uncoded 07/13/24 06:10 Active Medications: Current Medications Cefazolin Sodium/Dextrose (Ancef) 2 gm in 50 mls @ 100 mls/hr IV PREOP ONE Stop: 07/13/24 05:35 Home Medications ?Medication ?Instructions ?Recorded ?Confirmed ?Last Taken ?Type lisinopril 5 mg tablet 1 tab PO DAILY 04/24/21 07/13/24 07/12/24 History meloxicam 15 mg tablet 1 tab PO DAILY 04/24/21 07/13/24 07/02/24 History simvastatin 20 mg tablet 1 tab PO DAILY 04/24/21 06/29/24 01/12/24 History metoprolol succinate 50 mg 1 tab PO DAILY 04/27/21 07/13/24 07/13/24 History tablet,extended release 24 hr coQ10 (ubiquinol) 100 mg capsule 100 mg PO DAILY 12/23/23 06/29/24 12/26/23 History pregabalin 150 mg capsule 150 mg PO BID 12/23/23 06/29/24 01/12/24 History acetaminophen 500 mg tablet 1,000 mg PO QID PRN Pain 06/29/24 06/29/24 Unknown History (Acetaminophen Extra Strength) epinephrine 0.3 mg/0.3 mL 0.3 mg IM Q10M PRN Anaphylaxis 06/29/24 06/29/24 Unknown History injection, auto-injector Exam Height,Weight and Vital Signs: Height 5 ft 10 in Weight 105.687 kg Last Vital Signs Pulse 75 06/29/24 09:43 Resp 16 06/29/24 09:43 BP 134/79 06/29/24 09:43 Pulse Ox 95 06/29/24 09:43 O2 Del Method Room Air 06/29/24 09:43 Pertinent Lab Results Pertinent Lab Results: Laboratory Tests 12/23/23 06/29/24 12:19 09:29 WBC 8.6 Hgb 15.3 Hct 44.5 Plt Count 246 Sodium 140 Potassium 4.5 Chloride 107 Carbon Dioxide 26 BUN 13 Creatinine 0.99 Narrative Narrative: EKG 2023 Vent. Rate : 069 BPM Atrial Rate : 069 BPM P-R Int : 144 ms QRS Dur : 074 ms QT Int : 362 ms P-R-T Axes : 050 028 034 degrees QTc Int : 387 ms Normal sinus rhythm ST elevation, consider early repolarization Borderline ECG When compared with ECG of 04-SEP-2008 22:13, No significant change was found Assessment and Plan Assessment Anesthesia Assessment: Chart Reviewed Final Anesthetic Review Family History of Problems with Anesthesia: No History of Problems with Anesthesia: No Documented by User: Rosa Sheriff DO 07/13/24 07:27 [facility] Past Medical History Medical History (Updated 06/29/24 @ 10:20 by Sarah Rios, NATHAN) Snores Recent bereavement Depression Numbness Cough Osteoarthritis GERD (gastroesophageal reflux disease) Nicotine dependence IBS (irritable bowel syndrome) Essential tremor Sacroiliitis Obesity Sciatica Tinnitus History of broken nose Arthritis Hypercholesteremia HTN (hypertension) Kidney stones Family History Family history of problems with anesthesia: No Surgical History Surgical History (Updated 07/13/24 @ 06:11 by Wanda Dunaway RN) H/O arthroscopy of left knee History of nasal surgery [place] teeth removed History of esophagogastroduodenoscopy (EGD) H/O right knee surgery H/O cervical spine surgery History of surgery on arm H/O colonoscopy History of Problems with Anesthesia: No Social History Social History (Updated 06/29/24 @ 10:13 by Sarah Rios, NATHAN) Household Members: Spouse Housing: House Are you a primary lawn care specialist to a significant other at home: No Do you presently have visiting nurse or other home services: No Patient Tobacco Use Status: Current everyday Tobacco user Tobacco use type: Cigarette Smoked in Last 30 Days: Yes Second Hand Smoke Exposure: Yes ( smokes also) Use of substances other than those prescribed or required for medical reasons: No Have you been hit, kicked, punched, or otherwise hurt by someone within the past year? If so, by whom?: No Are you DNR?: No Advance Directives: No Advance Directives Information Provided: Yes Advance Directives on File: No Poor oral hygiene: No Meds Allergies Allergy/AdvReac Type Severity Reaction Status Date / Time bee pollen [Bee Stings] Allergy Severe ANAPHYLAXIS Verified 07/13/24 06:10 DAIRY PRODUCTS Allergy Severe Diarrhea Uncoded 07/13/24 06:10 Home Medications ?Medication ?Instructions ?Recorded ?Confirmed ?Last Taken ?Type lisinopril 5 mg tablet 1 tab PO DAILY 04/24/21 07/13/24 07/12/24 History meloxicam 15 mg tablet 1 tab PO DAILY 04/24/21 07/13/24 07/02/24 History simvastatin 20 mg tablet 1 tab PO DAILY 04/24/21 06/29/24 01/12/24 History metoprolol succinate 50 mg 1 tab PO DAILY 04/27/21 07/13/24 07/13/24 History tablet,extended release 24 hr coQ10 (ubiquinol) 100 mg capsule 100 mg PO DAILY 12/23/23 06/29/24 12/26/23 History pregabalin 150 mg capsule 150 mg PO BID 12/23/23 06/29/24 01/12/24 History acetaminophen 500 mg tablet 1,000 mg PO QID PRN Pain 06/29/24 06/29/24 Unknown History (Acetaminophen Extra Strength) epinephrine 0.3 mg/0.3 mL 0.3 mg IM Q10M PRN Anaphylaxis 06/29/24 06/29/24 Unknown History injection, auto-injector Exam Exam Date and Time: 07/13/24 0725 Airway Mallampati Class: II TM Dist: >3cm Neck ROM: Full Loose/Missing/Broken Teeth: No (patient denies any loose or broken teeth) Heart: S1S2 Lungs: CTAB Assessment and Plan Assessment Anesthesia Assessment: Anesthesia Plan Discussed and Chart Reviewed Final Anesthetic Review Family History of Problems with Anesthesia: No History of Problems with Anesthesia: No NPO: Yes ASA Class: II Final Preanesthetic Review: No Changes in Pt Med Stat, Meds/Allgs Chart Reviewed, Consent Obtained/Reviewed and Anes Risks/Benef Reviewed Patient Risk: Low Procedure Risk: Low Anesthetic Plan Anesthetic Plan: GA and Agree w/ Assess. and Plan Disposition: Standard PACU
[2024-07-13] MEDS: ceFAZolin Sodium/Dextrose,Iso 2 GM/50 ML PIGGYBACK IV (07:45)
[2024-07-13] MEDS: Acetaminophen 1,000 MG/100 ML PIGGYBACK 400 MG IV (08:15)
--- NOTE | 2024-07-13 08:35 | PM.OP ---
Brief Operative Note Date of Service: 07/13/24 Pre-op diagnosis: Right knee medial meniscus tear, right knee degenerative joint disease Post-op diagnosis: same Procedure: Right knee arthroscopic partial medial meniscectomy, right knee arthroscopic chondroplasty of the undersurface of the patella, trochlear groove and medial femoral condyle Implants: None Surgeon: Drew Cabrera MD Anesthesia: GLMA Was an Circular Distributor used for this Procedure?: No Estimated blood loss (mL): 10 Pathology: none sent Condition: stable Disposition: PACU
--- NOTE | 2024-07-13 08:36 | W.PM.OPN ---
Operative Note Operative Note Date of Service: 07/13/24 Narrative: After the patient was identified as Ernie English Sr. and his right knee was initialed by myself they were brought to the operating room where general anesthesia was induced by the anesthesiologist in routine fashion. The patient was given 2 g of IV Ancef for infection prophylaxis. A formal time-out was completed. The patient's right lower extremity was prepped and draped in sterile fashion. Marcaine with epinephrine was injected into the planned incision sites as well as their right knee joint. A # 11 scalpel blade was used to make an anterolateral portal 1 cm proximal to the joint line and 1 cm lateral to the patellar tendon. Blunt trocar technique was used into the suprapatellar pouch with the knee in extension. Diagnostic arthroscopy showed multiple bands of thickened plica which would be excised at the end of the procedure. There were no loose bodies or abnormalities found in either the medial or lateral gutters. There were diffuse grades 2 and 3 degenerative changes of the undersurface of the patella as well as grades 2 and 3 degenerative changes of the trochlear groove. The patient's knee was flexed to 45 degrees and a valgus force was placed upon it. The medial compartment was entered. An anteromedial portal was made 1 cm proximal to the joint line and 1 cm medial to the patellar tendon. Probing of the medial meniscus showed a radial tear of the anterior horn. A partial medial meniscectomy was performed using the arthroscopic shaver. Following the partial meniscectomy the remainder of the meniscus tissue was stable. There were diffuse grades 2 and 3 degenerative changes of the medial femoral condyle as well as diffuse grades 3 and 4 degenerative changes of the medial tibial plateau. The articular surface of the medial femoral condyle was made smooth using the arthroscopic shaver. The medial tibial plateau articular surface was already smooth so no chondroplasty was indicated. The patient's knee was then placed into a neutral position. There was no injury to the anterior cruciate ligament. The patient's knee was then placed into the figure of 4 position and the lateral compartment was entered. There were minimal degenerative changes of the lateral femoral condyle and lateral tibial plateau. There was no evidence of lateral meniscus tearing. The patient's knee was once again brought into extension and the suprapatellar pouch was entered. The arthroscopic shaver and the ArthroCare Wand were used to excise the thickened bands of plica. The undersurface of the patella and the trochlear groove articular surface were then made smooth using the arthroscopic shaver. The knee joint was irrigated and then drained. All arthroscopic instruments were removed. The 2 portals were closed with 3-0 nylon interrupted suture. The knee joint was injected with Marcaine. Dry sterile dressing and Ramu bandages were placed over the patient's knee. The patient was awoken and extubated in the operating room. They were transferred to the recovery room in stable condition.
[2024-07-13] MEDS: cefTRIAXone sodium 1 GM VIAL IVPUSH (08:42)
[2024-07-13] MEDS: oxyCODONE HCl Immed Release 5 MG TABLET PO (08:55)
== END 2024-07-13 09:59 | disposition home or self-care (01) ==
PROVIDERS: PCP Family Medicine; Visit Provider Orthopaedic Surgery
PROC: (CPT 29870; principal; 2024-07-13 07:30)
DX: S83.241A Other tear of medial meniscus, current injury, right knee, initial encounter (principal); M25.561 Pain in right knee; M17.11 Unilateral primary osteoarthritis, right knee; M23.51 Chronic instability of knee, right knee; M67.51 Plica syndrome, right knee; X58.XXXA Exposure to other specified factors, initial encounter; Y93.9 Activity, unspecified; Y92.9 Unspecified place or not applicable; Y99.9 Unspecified external cause status; M46.1 Sacroiliitis, not elsewhere classified; G25.0 Essential tremor; I10 Essential (primary) hypertension; E78.00 Pure hypercholesterolemia, unspecified; K21.9 Gastro-esophageal reflux disease without esophagitis; F32.A Depression, unspecified; Z79.899 Other long term (current) drug therapy; Z91.030 Bee allergy status; Z91.011 Allergy to milk products; Z98.890 Other specified postprocedural states; F17.210 Nicotine dependence, cigarettes, uncomplicated
CPT/HCPCS: 29881; J0131; J0171; J0690; J0696; J1100; J1885; J2003; J2250; J2371; J2405; J2704; J2795; J3010

== ENCOUNTER → 2024-07-13 05:51 | Outpatient (BNV) | payer OTHER, SELFPAY | PROVIDERS: PCP Family Medicine; Visit Provider Orthopaedic Surgery | DX: S83.241A Other tear of medial meniscus, current injury, right knee, initial encounter (principal) | CPT/HCPCS: 29881 ==

== ENCOUNTER 2024-07-26 09:00 | Outpatient (AMB) | payer OTHER, SELFPAY ==
[2024-07-26 09:08] VITALS: BMI 33.6
--- NOTE | 2024-07-26 09:08 | A.OFFVIS_ITS ---
Vital Signs 07/26/24 09:08 Height 5 ft 10 in Weight 234 lb BMI 33.6 Intake Visit Reasons: PO RT knee 07/13/24 Intake Note: Ernie is a 54 year old male who presents today for his first post-operative visit after undergoing a right knee arthroscopy on 07/13/24. He reports mild to moderate discomfort in his right knee. He has been doing gentle stretching exercises on his own. Allergies bee pollen (Bee Stings) Allergy (Severe, Verified 07/26/24 09:08) ANAPHYLAXIS DAIRY PRODUCTS Allergy (Severe, Uncoded 07/26/24 09:08) Diarrhea Medication List - Last Reviewed 07/26/24 by DEE Das acetaminophen (Acetaminophen Extra Strength) 1,000 mg PO QID PRN coQ10 (ubiquinol) 100 mg PO DAILY epinephrine 0.3 mg IM Q10M PRN lisinopril 1 tab PO DAILY meloxicam 1 tab PO DAILY metoprolol succinate ER 1 tab PO DAILY pregabalin 150 mg PO BID simvastatin 1 tab PO DAILY PFSH Medical History (Updated 07/26/24 @ 09:19 by Drew Cabrera MD) Snores Recent bereavement Depression Numbness Cough Osteoarthritis GERD (gastroesophageal reflux disease) Nicotine dependence IBS (irritable bowel syndrome) Essential tremor Sacroiliitis Obesity Sciatica Tinnitus History of broken nose Arthritis Hypercholesteremia HTN (hypertension) Kidney stones Surgical History (Updated 07/13/24 @ 06:11 by Wanda Dunaway RN) H/O arthroscopy of left knee History of nasal surgery [place] teeth removed History of esophagogastroduodenoscopy (EGD) H/O right knee surgery H/O cervical spine surgery History of surgery on arm H/O colonoscopy Social History (Updated 06/29/24 @ 10:13 by Sarah Rios RN) Household Members: Spouse Housing: House Are you a primary career and guidance counselor to a significant other at home: No Do you presently have visiting nurse or other home services: No Patient Tobacco Use Status: Current everyday Tobacco user Tobacco use type: Cigarette Second Hand Smoke Exposure: Yes ( smokes also) Physical Exam Vital Signs: BMI result Body Mass Index 33.6 Extrem Other: Right knee examination shows that the surgical incisions are healing well, no erythema, mild crepitus with range of motion Assessment & Plan Assessment & Plan (1) Right knee pain: Code(s): M25.561 - Pain in right knee Category: Medical Plan Mr. Amador Pittman is doing fairly well after undergoing right knee arthroscopic surgery on 07/13/2024. His sutures were removed and Steri-Strips placed over his incisions. He will gradually progress to activities as tolerated. I will clear him to return to work once his discomfort and strength have improved. He will contact me prior to his follow-up appointment in 2 months should any questions or concerns arise. Feel free to call me at any time should questions regarding his orthopedic management arise. Coding Level of Care Code Global (93645) Diagnoses Right knee pain M25.561
--- OUTSIDE RECORDS SUMMARY | 2024-07-26 09:35 | XMS_ITS | Patient Health Record ---
Author Organization [facility] Address [address] [place] [id number] Care Team Providers Care Mva Still Operator Name Role Phone Marcial LINTON, Daniel Primary Care Provider Robert Lassiter Unavailable [phone] Allergies Allergen (clinical drug ingredient) Drug/Non Drug [...] Problem Status W/U Status Risk Notes Problem [id number] Encounter for screening for malignant neoplasm of colon (Z12.11) Active confirmed Problem Esophageal reflux finding (712475429) Gastroesophageal reflux (K21.9) Active confirmed Problem Diverticulosis of colon (839263294) Diverticulosis of colon (K57.30) Active confirmed Problem 953416534 Gastroesophageal reflux disease, unspecified whether esophagitis present (K21.9) Active confirmed Plan Of Treatment Pending Test Test Name Order Date Pathology 04/27/2021 Future Test Test Name Order Date UPPER GI ENDOSCOPY 03/03/2021 COLONOSCOPY 03/03/2021 Insurance Providers Payer Name Payer Address Payer Phone Subscriber Number Group Number Insured Name Patient Relationship to Insured Coverage Start Date Coverage End Date [facility] [address] [address] [place] [address] [phone] [id number] MARY CARMEN GARY Self - patient is the insured Medical (General) History Medical History History ICD Code Hx of kidney stones Hypertension Hypercholesterolemia Reports a negative colonoscopy at age 41 Arthritis Denies [place],DM,CVA,Lung disease,renal dise ase GERD Surgical History Surgery Date(Month/Year) Right knee C-spine 4,5,6 Arm surgery for a dog bite Broken nose
== END 2024-07-26 09:18 | disposition home or self-care (01) ==
LOC: HO.HOS 09:01
PROVIDERS: PCP Family Medicine; Visit Provider Orthopaedic Surgery
DX: M25.561 Pain in right knee (principal)
CPT/HCPCS: 99024

== ENCOUNTER → 2024-07-26 09:00 | Outpatient (BNVA) | payer OTHER, SELFPAY | PROVIDERS: PCP Family Medicine; Visit Provider Orthopaedic Surgery ==

== ENCOUNTER 2024-09-03 11:23 | Outpatient (AMB) | payer OTHER, SELFPAY ==
--- NOTE | 2024-09-03 11:26 | A.OFFPC_ITS ---
Vital Signs 09/03/24 11:31 09/03/24 11:32 Height 5 ft 10 in Weight 232 lb BP 136/68 Blood Pressure Location Rt brachial Position Sitting Respiration 17 Pulse 86 Pulse Source Pulse Oximeter Temp 97.5 F Temp Source Temporal Artery Scan Pulse Oximetry (%) 95 Oxygen Delivery Method Room Air Intake Visit Reasons: routine Research Hydrologist Required: No Accompanied by: Spouse Allergies bee pollen (Bee Stings) Allergy (Severe, Verified 09/03/24 11:28) ANAPHYLAXIS DAIRY PRODUCTS Allergy (Severe, Uncoded 07/26/24 09:08) Diarrhea Tobacco use date assessed: 09/03/24 [facility] Medical History (Updated 09/03/24 @ 11:47 by Demetrius Lopez MD) Hyperlipidemia Snores Recent bereavement Depression Numbness Cough Osteoarthritis GERD (gastroesophageal reflux disease) Nicotine dependence IBS (irritable bowel syndrome) Essential tremor Sacroiliitis Obesity Sciatica Tinnitus History of broken nose Arthritis Hypercholesteremia HTN (hypertension) Kidney stones Surgical History (Updated 08/31/24 @ 08:06 by Erin Akers) H/O arthroscopy of left knee History of nasal surgery [place] teeth removed History of esophagogastroduodenoscopy (EGD) H/O right knee surgery H/O cervical spine surgery History of surgery on arm H/O colonoscopy (~05/04/21) Social History (Updated 06/29/24 @ 10:13 by Sarah Rios RN) Household Members: Spouse Housing: House Are you a primary personal care aid to a significant other at home: No Do you presently have visiting nurse or other home services: No Patient Tobacco Use Status: Current everyday Tobacco user Tobacco use type: Cigarette e-Cigarette/Vaping Use: Never Used Second Hand Smoke Exposure: Yes ( smokes also) Questionnaire AUDIT C Alcohol Use Questionnaire (AUDIT-C) 1. How often do you have a drink containing alcohol?: Monthly or less 2. How many drinks containing alcohol do you have on a typical day when you are drinking?: 1 or 2 Total Score: 1 Physical exam (Primary Care) Vital Signs: Last Vital Signs Temp 97.5 F 09/03/24 11:32 Pulse 86 09/03/24 11:32 Resp 17 09/03/24 11:32 BP 136/68 09/03/24 11:32 Pulse Ox 95 09/03/24 11:32 Oxygen Delivery Method Room Air 09/03/24 11:32 Tobacco/Smoking Status: Tobacco use Status Tobacco use date assessed 09/03/24 09/03/24 11:35 Patient Tobacco Use Status Current everyday Tobacco 09/03/24 11:28 Tobacco use type Cigarette 09/03/24 11:28 e-Cigarette/Vaping Use Never Used 09/03/24 11:35 Coding Level of Care Code New Pt Level 4 (77638) Complex EM visit Add On G2211 Diagnoses Hyperlipidemia E78.5 Assessment & Plan Assessment & Plan (1) Hyperlipidemia: Code(s): E78.5 - Hyperlipidemia, unspecified Category: Medical Plan: History of Present Illness - The patient is a 54-year-old male presenting for a routine follow-up and preventative care. - The patient underwent arthroscopic surgery on the right knee approximately seven weeks ago and has not returned to work since the procedure. - The patient experiences intermittent pain in the left elbow, which occasionally becomes troublesome. - The patient is due for a fasting cholesterol test as part of preventative care measures. 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 - Functional status: The patient is currently driving and reports no issues with sleep. Review of Systems - Musculoskeletal: Reports intermittent left elbow pain. Denies other joint pain. - General: Denies any current health concerns. Physical Exam General: Cooperative and healthy appearing Nutritional Appearance: Well nourished Orientation/consciousness: Patient oriented x3 Limitations: No limitations Head: Normal to inspection General: Appearance normal, both eyes and all related structures Neck: Normal visual inspection Chest: Normal palpation of entire chest wall Respiratory: N ormal respiratory effort Neurology: Patient oriented x3, reports occasional pain in left elbow Results Plan 1. Arthroscopic Surgery On Right Knee - Follow-up on recovery from arthroscopic surgery, assess readiness to return to work. 2. Intermittent Left Elbow Pain - Monitor symptoms and consider further evaluation if pain persists or worsens. 3. Preventative Care: Fasting Cholesterol Test - Schedule fasting cholesterol test to assess lipid profile. Discussion Notes I discussed with the patient the importance of completing the fasting cholesterol test to monitor his lipid levels. We also reviewed his recovery from knee surgery and the potential timeline for returning to work. The patient was advised to monitor his elbow pain and report any changes. Patient Instructions - Complete the fasting cholesterol test as scheduled. - Monitor elbow pain and report any worsening symptoms. - Follow up on knee recovery and discuss return to work with Dr. Yates.
[2024-09-03 11:32] VITALS: BP 136/68; PULSE 86; RESP 17; TEMP 36.4; O2SAT 95
--- OUTSIDE RECORDS SUMMARY | 2024-09-03 12:40 | XMS_ITS | Patient Health Record ---
Author Organization [facility] Address [address] [place] [id number] Care Team Providers Care Registered Medical Assistant Name Role Phone Marcial (RETIRED) Daniel LINTON Primary Care Provider Unavailable Robert Cullen Unavailable [phone] Allergies Allergen (clinical drug ingredient) Drug/Non Drug [...] Problem Status W/U Status Risk Notes Problem [id number] Encounter for screening for malignant neoplasm of colon (Z12.11) Active confirmed Problem Gastroesophageal reflux (K21.9) Active confirmed Problem Diverticulosis of colon (457728707) Diverticulosis of colon (K57.30) Active confirmed Problem 892123308 Gastroesophageal reflux disease, unspecified whether esophagitis present (K21.9) Active confirmed Plan Of Treatment Pending Test Test Name Order Date Pathology 04/27/2021 Future Test Test Name Order Date UPPER GI ENDOSCOPY 03/03/2021 COLONOSCOPY 03/03/2021 Insurance Providers Payer Name Payer Address Payer Phone Subscriber Number Group Number Insured Name Patient Relationship to Insured Coverage Start Date Coverage End Date [facility] [address] [address] [place] [address] [id number] MARY CARMEN GARY Self - patient is the insured Medical (General) History Medical History History ICD Code Hx of kidney stones Hypertension Hypercholesterolemia Reports a negative colonoscopy at age 41 Arthritis Denies [place],DM,CVA,Lung disease,renal dise ase GERD Surgical History Surgery Date(Month/Year) Right knee C-spine 4,5,6 Arm surgery for a dog bite Broken nose
== END 2024-09-03 11:47 | disposition home or self-care (01) ==
LOC: HO.HMCHD 11:24
PROVIDERS: PCP Family Medicine; Visit Provider Internal Medicine
DX: E78.5 Hyperlipidemia, unspecified (principal)

== ENCOUNTER 2024-09-04 06:24 | Outpatient (REF) | payer OTHER, SELFPAY ==
--- OUTSIDE RECORDS SUMMARY | 2024-09-04 06:26 | XMS_ITS | Patient Health Record ---
Author Organization [facility] Address [address] [place] [phone] Care Team Providers Care Joint Runner Name Role Phone Marcial (RETIRED) Daniel LINTON Primary Care Provider Unavailable Robert Cullen Unavailable [phone] Allergies Allergen (clinical drug ingredient) Drug/Non Drug [...] Problem Status W/U Status Risk Notes Problem [id number] Encounter for screening for malignant neoplasm of colon (Z12.11) Active confirmed Problem Gastroesophageal reflux (K21.9) Active confirmed Problem Diverticulosis of colon (729970474) Diverticulosis of colon (K57.30) Active confirmed Problem 709409535 Gastroesophageal reflux disease, unspecified whether esophagitis present (K21.9) Active confirmed Plan Of Treatment Pending Test Test Name Order Date Pathology 04/27/2021 Future Test Test Name Order Date UPPER GI ENDOSCOPY 03/03/2021 COLONOSCOPY 03/03/2021 Insurance Providers Payer Name Payer Address Payer Phone Subscriber Number Group Number Insured Name Patient Relationship to Insured Coverage Start Date Coverage End Date [facility] [address] [address] [place] [address] [phone] [id number] MARY CARMEN GARY Self - patient is the insured Medical (General) History Medical History History ICD Code Hx of kidney stones Hypertension Hypercholesterolemia Reports a negative colonoscopy at age 41 Arthritis Denies [place],DM,CVA,Lung disease,renal dise ase GERD Surgical History Surgery Date(Month/Year) Right knee C-spine 4,5,6 Arm surgery for a dog bite Broken nose
[2024-09-04 10:16] LABS: Hematocrit 45.9 % (42.0-52.0); Hemoglobin 15.7 g/dl (14.0-18.0); Mean Corpuscular HGB Conc 34.2 g/dl (31.0-36.0); Mean Corpuscular Hemoglobin 32.0 pg (27.0-33.0); Mean Corpuscular Volume 93.7 fL (80.0-98.0); NRBC Abs Auto 0.000 X10*3/uL (0.0-0.012); NRBC Pct Auto 0.0 /100WBC (0.0-0.2); Platelet Count 245 X10*3/uL (160-400); Red Blood Count 4.90 X10*6/uL (4.60-5.80); White Blood Count 8.1 X10*3/uL (4.8-10.8)
[2024-09-04 10:54] LABS: Alanine Aminotransferase 23 U/L (0-40); Albumin Level 4.3 g/dL (3.5-5.0); Alkaline Phosphatase 108 U/L (39-117); Anion Gap 11 (12-20); Aspartate Amino Transferase 29 U/L (5-37); Blood Urea Nitrogen 15 mg/dL (9-16); Calcium 8.8 mg/dL (8.4-10.2); Carbon Dioxide 25 mmol/L (22-29); Chloride 107 mmol/L (96-108); Cholesterol 130 mg/dL (<200); Estimated Glomerular Filt Rate > 60; HDL Cholesterol 24 mg/dL (>40); Potassium 4.4 mmol/L (3.3-5.1); Sodium 139 mmol/L (135-145); Total Protein 6.8 g/dL (6.5-8.0); Triglycerides 127 mg/dL (<150)
[2024-09-04 11:13] LABS: Thyroid Stimulating Hormone 2.17 uIU/mL (0.32-4.0)
== END 2024-09-04 06:25 | disposition home or self-care (01) ==
LOC: HO.HMGCLDS 06:24
PROVIDERS: PCP Internal Medicine; Visit Provider Internal Medicine
DX: E78.5 Hyperlipidemia, unspecified (principal); Z12.5 Encounter for screening for malignant neoplasm of prostate
CPT/HCPCS: 36415; 80048; 80061; 80076; 84153; 84443; 85027

== ENCOUNTER 2024-09-04 08:59 | Outpatient (AMB) | payer OTHER, SELFPAY ==
--- NOTE | 2024-09-04 09:01 | MHC.OFFVIS ---
Vital Signs 09/04/24 09:06 Height 5 ft 10 in Weight 235 lb BMI 33.7 Intake Visit Reasons: PO- RT knee 07/13/24 DR Intake Note: Ernie is a 54 year old male who presents with complaints of intermittent discomfort and instability in his right knee after undergoing right knee arthroscopic surgery on 07/13/2024. He is due to return to work next week. Patient states that he feels unsteady when going up and down stairs or up and down a ladder. Denies any fevers or chills. He wishes to hold off on total knee replacement surgery for as long as possible. Allergies bee pollen (Bee Stings) Allergy (Severe, Verified 09/04/24 09:05) ANAPHYLAXIS DAIRY PRODUCTS Allergy (Severe, Uncoded 07/26/24 09:08) Diarrhea Medication List - Last Reconciled 09/04/24 by Drew Cabrera MD acetaminophen (Acetaminophen Extra Strength) 1,000 mg PO QID PRN coQ10 (ubiquinol) 100 mg PO DAILY epinephrine 0.3 mg IM Q10M PRN lisinopril 1 tab PO DAILY meloxicam 1 tab PO DAILY metoprolol succinate ER 1 tab PO DAILY pregabalin 150 mg PO BID simvastatin 1 tab PO DAILY PFS Medical History (Updated 09/04/24 @ 09:32 by Drew Cabrera MD) Hyperlipidemia Snores Recent bereavement Depression Numbness Cough Osteoarthritis GERD (gastroesophageal reflux disease) Nicotine dependence IBS (irritable bowel syndrome) Essential tremor Sacroiliitis Obesity Sciatica Tinnitus History of broken nose Arthritis Hypercholesteremia HTN (hypertension) Kidney stones Surgical History (Updated 08/31/24 @ 08:06 by Erin Akers) H/O arthroscopy of left knee History of nasal surgery [place] teeth removed History of esophagogastroduodenoscopy (EGD) H/O right knee surgery H/O cervical spine surgery History of surgery on arm H/O colonoscopy (~05/04/21) Social History (Updated 06/29/24 @ 10:13 by Sarah Rios RN) Household Members: Spouse Housing: House Are you a primary resident care aid to a significant other at home: No Do you presently have visiting nurse or other home services: No Patient Tobacco Use Status: Current everyday Tobacco user Tobacco use type: Cigarette e-Cigarette/Vaping Use: Never Used Second Hand Smoke Exposure: Yes ( smokes also) Physical Exam Vital Signs: BMI result Body Mass Index 33.7 Extrem Other: Right knee examination shows that the surgical incisions are well healed, no erythema, palpable crepitus with range of motion, pain with range of motion Assessment & Plan Assessment & Plan (1) Arthritis of right knee: Code(s): M17.11 - Unilateral primary osteoarthritis, right knee Category: Medical Plan Mr. English presents with continued right knee pain and symptoms of instability after undergoing arthroscopic surgery on 07/13/2024 due to degenerative joint disease. I will see if the patient can be fitted for a knee brace to help with his symptoms of instability. The knee brace is a medical necessity to help prevent future falls. The patient's symptoms may continue to improve over the next few months. If his symptoms continue he would be a good candidate for right total knee replacement surgery. He wishes to hold off on total knee replacement surgery for now. I will clear him to return to work once his strength and discomfort have improved. The patient is instructed not to go up and down ladders until he feels safe to do so. He will contact me prior to his follow-up appointment in 3 months should any questions or concerns arise. Coding Level of Care Code Global (40673) Diagnoses Arthritis of right knee M17.11
[2024-09-04 09:06] VITALS: BMI 33.7
== END 2024-09-04 09:31 | disposition home or self-care (01) ==
LOC: HO.HOS 08:59
PROVIDERS: PCP Family Medicine; Visit Provider Orthopaedic Surgery
DX: M17.11 Unilateral primary osteoarthritis, right knee (principal)
CPT/HCPCS: 99024

== ENCOUNTER 2024-10-31 15:15 | Outpatient (AMB) | payer OTHER, SELFPAY ==
--- NOTE | 2024-10-31 15:16 | MHC.PC.OV ---
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: No Accompanied by: Self / Same As Patient Allergies bee pollen (Bee Stings) Allergy (Severe, Verified 10/31/24 15:16) ANAPHYLAXIS DAIRY PRODUCTS Allergy (Severe, Uncoded 07/26/24 09:08) Diarrhea Tobacco use date assessed: 09/03/24 Dental Screening Dental Screen Date: 10/31/24 Did you have a dental visit in the last 12 months?: Yes Did you have a dental problem in the last 6 months where you did not have access to dental care?: No Was dental information given to patient?: Patient has dentist HPI HPI Comments History of Present Illness Details 54-year-old male with history of hypertension, hypercholesterolemia, osteoarthritis, plantar fasciitis, IBS, obesity presenting to the office today accompanied by his for evaluation and to establish care. Hypertension-blood pressure 136/70. Compliant with metoprolol, lisinopril 20 mg daily Hyperlipidemia-compliant with simvastatin and Co Q10. Last LDL 81. Osteoarthritis of the knees bilaterally-previously following with [facility] who prescribed Lyrica 150 mg by daily which he has continue taking. He is also using tramadol occasionally and is now following with Dr. Vieira in orthopedics with plan for left TKA in the near future. Last year underwent right TKA. Plantar fasciitis left foot-had cortisone injection by prior PCP with improvement in symptoms. Has been wearing inserts in his shoes. Has not followed with Podiatry. He is also experiencing pain in the medial aspect of his heel. He is able to ambulate but is limited with distances due to pain Obesity-BMI 34.3 Concerns: ADHD-reports he has been following with a counselor who recommended Strattera to previous PCP. Prior PCP suggested antidepressant instead which he did not initiate. He reports significant issues with concentration, completing tasks, and frequently skips from topic to topic which is noted in the office today ROS: See HPI EXAM: Constitutional - Awake and Alert, No apparent distress Eyes - PERRL Cardiovascular - S1S2, RRR, No edema Respiratory - Normal lung expansion, Normal respiratory effort, No respiratory distress, CTA bilaterally Extremities - no calf tenderness bilaterally, no swelling. L foot- pain over the insertion of the plantar fascia into the calcaneus. Pain with dorsiflexion Skin - Warm/Dry Neurological - Alert & oriented x3 Psychological - Appropriate affect, frequently changing topics [facility] Medical History (Updated 10/31/24 @ 17:52 by NATHANIEL Falcon) ADHD Hyperlipidemia Snores Recent bereavement Depression Numbness Cough Osteoarthritis GERD (gastroesophageal reflux disease) Nicotine dependence IBS (irritable bowel syndrome) Essential tremor Sacroiliitis Obesity Sciatica Tinnitus History of broken nose Arthritis Hypercholesteremia HTN (hypertension) Kidney stones Surgical History (Updated 08/31/24 @ 08:06 by Erin Akers) H/O arthroscopy of left knee History of nasal surgery [place] teeth removed History of esophagogastroduodenoscopy (EGD) H/O right knee surgery H/O cervical spine surgery History of surgery on arm H/O colonoscopy (~05/04/21) Social History (Updated 06/29/24 @ 10:13 by Sarah Rios RN) Household Members: Spouse Housing: House Are you a primary rn long term care to a significant other at home: No Do you presently have visiting nurse or other home services: No Patient Tobacco Use Status: Current everyday Tobacco user Tobacco use type: Cigarette Years Smoked: 25 years e-Cigarette/Vaping Use: Never Used Second Hand Smoke Exposure: Yes ( smokes also) service: No Current occupational status: employed Current occupation: [employer] Physical exam (Primary Care) Vital Signs: Last Vital Signs Temp 98 F 10/31/24 15:18 Pulse 80 10/31/24 15:18 Resp 18 10/31/24 15:18 BP 136/70 10/31/24 15:18 Pulse Ox 94 10/31/24 15:18 Oxygen Delivery Method Room Air 10/31/24 15:18 BMI result Body Mass Index 34.3 Tobacco/Smoking Status: Tobacco use Status Tobacco use date assessed 09/03/24 10/31/24 15:24 Patient Tobacco Use Status Current everyday Tobacco 10/31/24 15:24 Tobacco use type Cigarette 10/31/24 15:24 e-Cigarette/Vaping Use Never Used 10/31/24 15:24 Office Procedures EKG Details: NSR, rate 70. No ST/T-wave abnormality. QTC 395 ms 13299-Hyutumqgrapxpzowk, Complete Coding Level of Care Code New Pt Level 4 (35733) Complex EM visit Add On G2211 Diagnoses HTN (hypertension) I10 Hyperlipidemia E78.5 ADHD F90.9 Plantar fasciitis of left foot M72.2 CPT Codes EKG - CPT: 55867-Zcyoavvospzxleocy, Complete ([id number]) Assessment & Plan Assessment & Plan (1) HTN (hypertension): Code(s): I10 - Essential (primary) hypertension Category: Medical Plan: Controlled. Continue metoprolol, lisinopril. We will need to monitor blood pressures closely given the addition of Strattera (2) Hyperlipidemia: Code(s): E78.5 - Hyperlipidemia, unspecified Category: Medical Plan: Reviewed last lipid panel, at goal. Continue simvastatin and Co Q10 (3) ADHD: Code(s): F90.9 - Attention-deficit hyperactivity disorder, unspecified type Category: Medical Plan: Initiate Strattera. Baseline EKG obtained which is reassuring. He will contact the office with regard to symptoms as well as blood pressure readings at home. We will increase dose to 80 mg daily as needed (4) Plantar fasciitis of left foot: Code(s): M72.2 - Plantar fascial fibromatosis Category: Medical Plan: XR of the left foot ordered. Referred to Podiatry. He can use ibuprofen or Tylenol as needed. He is given exercises to perform at home and recommended to freeze a water bottle and roll his foot over this. Recommend shoe insert for arch support Plan Follow-up in the office in 4 months as scheduled, labs to be completed prior to visit Orders: Orders AMB EKG-In Office Today Z13.6 - Encounter for screening for cardiovascular disorders, Z51.81 - Encounter for therapeutic drug level monitoring Lipid Panel 4 Months E66.9 - Obesity, unspecified, E78.00 - Pure hypercholesterolemia, unspecified, E78.5 - Hyperlipidemia, unspecified, I10 - Essential (primary) hypertension Liver Panel 4 Months E66.9 - Obesity, unspecified, E78.00 - Pure hypercholesterolemia, unspecified, E78.5 - Hyperlipidemia, unspecified, I10 - Essential (primary) hypertension Prostate Specific Antigen 4 Months E66.9 - Obesity, unspecified, E78.00 - Pure hypercholesterolemia, unspecified, E78.5 - Hyperlipidemia, unspecified, I10 - Essential (primary) hypertension Basic Metabolic Panel 4 Months E66.9 - Obesity, unspecified, E78.00 - Pure hypercholesterolemia, unspecified, E78.5 - Hyperlipidemia, unspecified, I10 - Essential (primary) hypertension XR foot LT min 3V Today M79.672 - Pain in left foot Referrals Podiatry Referral M72.2 - Plantar fascial fibromatosis Medications: New atomoxetine 40 mg PO DAILY 30 caps 0RF pregabalin 150 mg PO BID 60 caps 2RF
[2024-10-31 15:18] VITALS: BP 136/70; PULSE 80; RESP 18; TEMP 36.6; O2SAT 94; BMI 34.3
--- OUTSIDE RECORDS SUMMARY | 2024-10-31 17:41 | XMS_ITS | Patient Health Record ---
Author Organization [facility] Address [address] [place] [address] Care Team Providers Care Mortgage Loan Specialist Name Role Phone Marcial (RETIRED) Daniel LINTON Primary Care Provider Unavailable Robert Cullen Unavailable [phone] Allergies Allergen (clinical drug ingredient) Drug/Non Drug [...] Problem Status W/U Status Risk Notes Problem [id number] Encounter for screening for malignant neoplasm of colon (Z12.11) Active confirmed Problem Esophageal reflux finding (930806926) Gastroesophageal reflux (K21.9) Active confirmed Problem Diverticulosis of colon (465836543) Diverticulosis of colon (K57.30) Active confirmed Problem 307757598 Gastroesophageal reflux disease, unspecified whether esophagitis present (K21.9) Active confirmed Plan Of Treatment Pending Test Test Name Order Date Pathology 04/27/2021 Future Test Test Name Order Date UPPER GI ENDOSCOPY 03/03/2021 COLONOSCOPY 03/03/2021 Insurance Providers Payer Name Payer Address Payer Phone Subscriber Number Group Number Insured Name Patient Relationship to Insured Coverage Start Date Coverage End Date [facility] [address] [address] [place] [phone] [id number] MARY CARMEN GARY Self - patient is the insured Medical (General) History Medical History History ICD Code Hx of kidney stones Hypertension Hypercholesterolemia Reports a negative colonoscopy at age 41 Arthritis Denies [place],DM,CVA,Lung disease,renal dise ase GERD Surgical History Surgery Date(Month/Year) Right knee C-spine 4,5,6 Arm surgery for a dog bite Broken nose
== END 2024-10-31 16:30 | disposition home or self-care (01) ==
LOC: HO.HMCHD 15:15
PROVIDERS: PCP Internal Medicine; Visit Provider Physician Assistant
DX: I10 Essential (primary) hypertension (principal); E78.5 Hyperlipidemia, unspecified; F90.9 Attention-deficit hyperactivity disorder, unspecified type; M72.2 Plantar fascial fibromatosis

== ENCOUNTER 2024-10-31 15:15 | Outpatient (REF) | payer OTHER, SELFPAY ==
--- NOTE | ~2024-10-31 | XR_ITS ---
EXAMINATION: XR FOOT, LEFT CLINICAL INFORMATION: M79.672 - Pain in left foot COMPARISON: None available. TECHNIQUE: AP, lateral, and oblique views of the left foot. FINDINGS: There is mild asymmetric narrowing of the first metatarsophalangeal joint with lateral marginal osteophytes. There is a small plantar calcaneal spur. No other abnormalities are detected. XR/XR foot LT min 3V IMPRESSION: Mild first MTP joint osteoarthritis. Nonspecific small calcaneal spur. Electronically signed by: Elvis Montelongo MD 10/31/2024 05:49 PM EDT
== END 2024-10-31 15:16 | disposition home or self-care (01) ==
LOC: HO.XRAY 15:15
PROVIDERS: PCP Physician Assistant; Visit Provider Physician Assistant
DX: M79.672 Pain in left foot (principal); I10 Essential (primary) hypertension; E78.5 Hyperlipidemia, unspecified; F90.9 Attention-deficit hyperactivity disorder, unspecified type; M72.2 Plantar fascial fibromatosis
CPT/HCPCS: 73630; 93005

== ENCOUNTER → 2024-10-31 17:05 | Outpatient (BNV) | payer OTHER, SELFPAY | PROVIDERS: PCP Physician Assistant; Visit Provider Radiology Diagnostic Radiology | DX: M77.32 Calcaneal spur, left foot (principal) | CPT/HCPCS: 73630 ==

== ENCOUNTER 2024-11-23 08:47 | Outpatient (AMB) | payer OTHER, SELFPAY ==
--- NOTE | 2024-11-23 08:57 | A.OFFVIS_ITS ---
Vital Signs 11/23/24 08:58 Height 5 ft 10 in Weight 240 lb BMI 34.4 Intake Visit Reasons: Plantar Fascial fibromatosis Intake Note: Ernie is a 54 year old male who presents today for an evaluation of his plantar fascial. Patient states pain is located on his left heel and has been going on for about 1 month. Patient was previously seen by Dr. Dickey where he had prov ided patient with a cortisone injection when he had plantar fasciitis in the past. He has tried stretching exercises and found no relief at this time. Allergies bee pollen (Bee Stings) Allergy (Severe, Verified 11/23/24 09:07) ANAPHYLAXIS DAIRY PRODUCTS Allergy (Severe, Uncoded 07/26/24 09:08) Diarrhea Medication List - Last Reconciled 11/23/24 by Ludivina Sorensen DPM acetaminophen (Acetaminophen Extra Strength) 1,000 mg PO QID PRN amlodipine 5 mg PO BEDTIME atomoxetine 40 mg PO DAILY coQ10 (ubiquinol) 100 mg PO DAILY epinephrine 0.3 mg IM Q10M PRN lisinopril 20 mg PO BID meloxicam 15 mg PO DAILY PRN Held on 11/23/24. Instructions: Patient will take Medrol Dose Benito instead methylprednisolone (Medrol (Benito)) PO PER PKG DIR metoprolol succinate ER 1 tab PO DAILY pregabalin 150 mg PO BID simvastatin 1 tab PO DAILY tramadol 50 mg PO Q12H PRN HPI Comments Details: The patient is a 54-year-old male with a PMH as seen below presenting with left heel pain. The pain has been present for about a month and is described as stabbing and sharp, particularly when pressure is applied to the medial aspect of the heel. The patient reports that the pain is most severe in the morning and after prolonged periods on his feet. The patient has a history of knee injuries, having undergone arthroscopic surgery on both knees, with the right knee req uiring a replacement. Due to knee pain, he has been placing more pressure on his left foot for compensation. Approximately 9 - 10 years ago, the patient received a cortisone injection due to history of plantar fasciitis, which provided relief at the time. He has been using insoles to manage the condition with minimal relief. The patient denies any numbness, tingling, or burning sensations in the foot. He has been performing stretching exercises regularly to alleviate the pain with some relief.The patient is currently taking meloxicam and pregabalin without relief. Denies any recent pedal injuries. 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 Denies any other pedal concerns. [facility] Medical History (Updated 11/23/24 @ 12:07 by Ludivina Sorensen DPM) Xerosis cutis Other enthesopathy of left foot and ankle Calcaneal spur, left foot Left foot pain ADHD Hyperlipidemia Snores Recent bereavement Depression Numbness Cough Osteoarthritis GERD (gastroesophageal reflux disease) Nicotine dependence IBS (irritable bowel syndrome) Essential tremor Sacroiliitis Obesity Sciatica Tinnitus History of broken nose Arthritis Hypercholesteremia HTN (hypertension) Kidney stones Surgical History (Updated 08/31/24 @ 08:06 by Erin Akers) H/O arthroscopy of left knee History of nasal surgery [place] teeth removed History of esophagogastroduodenoscopy (EGD) H/O right knee surgery H/O cervical spine surgery History of surgery on arm H/O colonoscopy (~05/04/21) Social History (Updated 06/29/24 @ 10:13 by Sarah Rios RN) Household Members: Spouse Housing: House Are you a primary home health caregiver to a significant other at home: No Do you presently have visiting nurse or other home services: No Patient Tobacco Use Status: Current everyday Tobacco user Tobacco use type: Cigarette Years Smoked: 25 years e-Cigarette/Vaping Use: Never Used Second Hand Smoke Exposure: Yes ( smokes also) service: No Current occupational status: employed Current occupation: [employer] Review of Systems Const Details: - Musculoskeletal: Reports stabbing pain in the medial aspect of the left heel, most severe in the morning and after prolonged standing. Denies numbness, tingling, or burning. All systems reviewed & are unremarkable except as noted in HPI and below Physical Exam Vital Signs: BMI result Body Mass Index 34.4 Extrem Other: LLE Focused Physical Exam: Derm: Xerosis noted to the plantar aspects of B/L feet. No open lesions, abrasions, or wounds noted. No clinical signs of infection. No ecchymosis or discoloration noted. No maceration noted. Vasc: DP/PT pulses palpable. CFT < 3 secs. Temp gradient warm to warm. Pedal hair diminished. No varicosites noted. No edema noted. Neuro: Protective sensations grossly intact. MSK: Pain on palpation to the plantar aspect of the heel in the area of the medial calcaneal tubercle. No pain upon palpation to the lateral calcaneal tubercle. Negative windlass mechanism. Mildly antalgic gait. ROM of the forefoot, hindfoot, and ankle WNL. MMT 5/5. Results Reviewed Results Reviewed: Podiatry Read of Left foot xray (10/31/24): Bone spur noted to the plantar aspect of the calcaneus. Mild joint space narrowing noted to the 1st MPJ with osteophyte formation noted. No acute fractures or dislocations noted. Left foot xray (10/31/24): FINDINGS: There is mild asymmetric narrowing of the first metatarsophalangeal joint with lateral marginal osteophytes. There is a small plantar calcaneal spur. No other abnormalities are detected. IMPRESSION: Mild first MTP joint osteoarthritis. Nonspecific small calcaneal spur. Assessment & Plan Assessment & Plan (1) Plantar fasciitis of left foot: Code(s): M72.2 - Plantar fascial fibromatosis Category: Medical (2) Left foot pain: Code(s): M79.672 - Pain in left foot Category: Medical (3) Calcaneal spur, left foot: Code(s): M77.32 - Calcaneal spur, left foot Category: Medical (4) Other enthesopathy of left foot and ankle: Code(s): M77.52 - Other enthesopathy of left foot and ankle Category: Medical (5) Xerosis cutis: Code(s): L85.3 - Xerosis cutis Category: Medical Plan Patient was informed and verbally consented to the use of an ambient scribe for clinic note documentation during this visit. I discussed with the patient the diagnosis of plantar fasciitis and the presence of a bone spur, which indicates chronicity of the condition. We reviewed the treatment options, including cortisone injections, stretching exercises, night splints, inserts, and oral medication, emphasizing the importance of continuing stretching exercises and using insoles. I advised a follow-up in three weeks to evaluate the effectiveness of the treatment plan. - Prescribed Medrol Dosepak to manage inflammation and pain, with instructions to hold meloxicam course. - Recommend continuation of stretching exercises and use of insoles for foot support. Provided patient with plantar fascial exercise stretching informational form. - Advised use of supportive shoe gear and to avoid barefoot walking. - Prescribed Ammonium lactate cream for xerosis of skin. - Will consider night splint, injection, and/or physical therapy if pain persists. RTC 3 weeks for re-evaluation. Medications: New methylprednisolone (Medrol (Beniot)) PO PER PKG DIR 21 ea 0RF Plantar Fasciitis M72.2 - Plantar fascial fibromatosis, M77.32 - Calcaneal spur, left foot, M77.52 - Other enthesopathy of left foot and ankle, M79.672 - Pain in left foot ammonium lactate 12% 1 appl topical DAILY 385 grams 0RF Xerosis of skin L85.3 - Xerosis cutis On Hold meloxicam Hold Comment: Patient will take Medrol Dose Benito instead 15 mg PO DAILY PRN 30 tabs 3RF pain Coding Level of Care Code New Pt Level 4 (51885) Diagnoses Plantar fasciitis of left foot M72.2 Left foot pain M79.672 Calcaneal spur, left foot M77.32 Other enthesopathy of left foot and ankle M77.52 Xerosis cutis L85.3 Time Spent (min) 55
[2024-11-23 08:58] VITALS: BMI 34.4
--- OUTSIDE RECORDS SUMMARY | 2024-11-23 09:17 | XMS_ITS | Patient Health Record ---
Author Organization [facility] Address [address] [place] [address] Care Team Providers Care Deputy Chief Magistrate Name Role Phone Marcial (RETIRED) Daniel LINTON Primary Care Provider Unavailable Robert Cullen Unavailable [phone] Allergies Allergen (clinical drug ingredient) Drug/Non Drug Allergy documented on EMR Reaction Allergy Type Onset Date Status Bee Sting Unknown Allergy Active milk products (uncoded) Unknown Allergy Active Reason For Referral No Information Medications Medication SIG (Take, Route, Frequency, Duration) Notes Start Date End Date Status Metoprolol Succinate ER 50 MG Oral; Duration: 30 Not-Takin g Amoxicillin 875 MG Oral; Duration: 10 Not-Taking Multivitamin - 1 tablet Orally Once a day; Duration: 30 day(s) Active CoQ10 200 MG as directed Orally Active Omeprazole 20 MG Oral; Duration: 30 Active Lisinopril 5 MG Oral; Duration: 30 Active Simvastatin 20 MG Oral; Duration: 30 Active Meloxicam 15 MG Oral; Duration: 30 Active Immunizations Vaccine Route Administration Date Status Comme [...] Problem Status W/U Status Risk Notes Problem Screening for malignant neoplasm of colon (237191808) Encounter for screening for malignant neoplasm of colon (Z12.11) Active confirmed Problem Esophageal reflux finding (500742247) Gastroesophageal reflux (K21.9) Active confirmed Problem Diverticulosis of colon (318774753) Diverticulosis of colon (K57.30) Active confirmed Problem Gastroesophageal reflux disease (112630381) Gastroesophageal reflux disease, unspecified whether esophagitis present (K21.9) Active confirmed Plan Of Treatment Pending Test Test Name Order Date Pathology 04/27/2021 Future Test Test Name Order Date UPPER GI ENDOSCOPY 03/03/2021 COLONOSCOPY 03/03/2021 Insurance Providers Payer Name Payer Address Payer Phone Subscriber Number Group Number Insured Name Patient Relationship to Insured Coverage Start Date Coverage End Date [facility] [address] [place] [address] [phone] [id number] MARY CARMEN GARY Self - patient is the insured Medical (General) History Medical History History ICD Code Hx of kidney stones Hypertension Hypercholesterolemia Reports a negative colonoscopy at age 41 Arthritis Denies [place],DM,CVA,Lung disease,renal dise ase GERD Surgical History Surgery Date(Month/Year) Right knee C-spine 4,5,6 Arm surgery for a dog bite Broken nose
== END 2024-11-23 09:27 | disposition home or self-care (01) ==
LOC: HO.HPODS 08:48
PROVIDERS: PCP Internal Medicine; Visit Provider Student in an Organized Health Care Education/Training Program
DX: M72.2 Plantar fascial fibromatosis (principal); M79.672 Pain in left foot; M77.32 Calcaneal spur, left foot; M77.52 Other enthesopathy of left foot and ankle; L85.3 Xerosis cutis
CPT/HCPCS: 99204

== ENCOUNTER 2024-12-06 09:35 | Outpatient (AMB) | payer OTHER, SELFPAY ==
[2024-12-06 09:43] VITALS: BMI 34.4
--- NOTE | 2024-12-06 09:43 | MHC.OFFVIS ---
Vital Signs 12/06/24 09:43 Height 5 ft 10 in Weight 240 lb BMI 34.4 Intake Visit Reasons: f/u plantar fasciitis left foot Intake Note: Ernie is a 54 year old male who presents to the office today for a follow up for plantar fasciitis of his left foot. At last visit patient was prescribed methylprednisolone. Pt states the medication has helped alleviate his symptoms and he states he has been doing the stretching exercises as well. Allergies bee pollen (Bee Stings) Allergy (Severe, Verified 12/06/24 15:01) ANAPHYLAXIS DAIRY PRODUCTS Allergy (Severe, Uncoded 12/06/24 15:01) Diarrhea HPI Comments Details: The patient is a 54-year-old male presenting for a follow up of left foot plantar fasciitis. The patient reports experiencing left foot pain consistently, with exacerbation when attempting to ambulate, leading to significant discomfort in the plantar fascia region. The pain has been persistent, and the patient has been using medication and exercises to manage the symptoms. The patient has been finished the Medrol Dosepak with mild relief, and once the medication was completed he restarted the meloxicam for pain management. Additionally, the patient reports discomfort around his toenails without swelling, redness, or purulence. He states he has also noticed thickening and discoloration to toenails x10. He denies any other pedal concerns. [facility] Medical History (Updated 12/09/24 @ 12:48 by Ludivina Sorensen DPM) Tinea unguium Xerosis cutis Other enthesopathy of left foot and ankle Calcaneal spur, left foot Left foot pain ADHD Hyperlipidemia Snores Recent bereavement Depression Numbness Cough Osteoarthritis GERD (gastroesophageal reflux disease) Nicotine dependence IBS (irritable bowel syndrome) Essential tremor Sacroiliitis Obesity Sciatica Tinnitus History of broken nose Arthritis Hypercholesteremia HTN (hypertension) Kidney stones Surgical History H/O arthroscopy of left knee History of nasal surgery [place] teeth removed History of esophagogastroduodenoscopy (EGD) H/O right knee surgery H/O cervical spine surgery History of surgery on arm H/O colonoscopy (~05/04/21) Social History Household Members: Spouse Housing: House Are you a primary adult day care worker to a significant other at home: No Do you presently have visiting nurse or other home services: No Patient Tobacco Use Status: Current everyday Tobacco user Tobacco use type: Cigarette Years Smoked: 25 years e-Cigarette/Vaping Use: Never Used Second Hand Smoke Exposure: Yes ( smokes also) service: No Current occupational status: employed Current occupation: [employer] Review of Systems Const Details: - Musculoskeletal: Reports consistent left foot pain, exacerbated by walking. - Integumentary: Reports irritation along the nails with increased thickness and discoloration to toenails x10. All systems reviewed & are unremarkable except as noted in HPI and below Physical Exam Vital Signs: BMI result Body Mass Index 34.4 Extrem Other: LLE Focused Physical Exam: Derm: Xerosis noted to the plantar aspects of B/L feet. Thickened, discolored, and dystrophic toenails x10. No open lesions, abrasions, or wounds noted. No clinical signs of infection. No ecchymosis or discoloration noted. No maceration noted. Vasc: DP/PT pulses palpable. CFT < 3 secs. Temp gradient warm to warm. Pedal hair diminished. No varicosites noted. No edema noted. Neuro: Protective sensations grossly intact. MSK: Pain on palpation to the plantar aspect of the heel in the area of the medial calcaneal tubercle and central aspect of the calcaneus. No pain upon palpation to the lateral calcaneal tubercle. Negative windlass mechanism. Mildly antalgic gait. ROM of the forefoot, hindfoot, and ankle WNL. MMT 5/5. Results Reviewed Results Reviewed: Podiatry Read of Left foot xray (10/31/24): Bone spur noted to the plantar aspect of the calcaneus. Mild joint space narrowing noted to the 1st MPJ with osteophyte formation noted. No acute fractures or dislocations noted. Left foot xray (10/31/24): FINDINGS: There is mild asymmetric narrowing of the first metatarsophalangeal joint with lateral marginal osteophytes. There is a small plantar calcaneal spur. No other abnormalities are detected. IMPRESSION: Mild first MTP joint osteoarthritis. Nonspecific small calcaneal spur. Assessment & Plan Assessment & Plan (1) Plantar fasciitis of left foot: Code(s): M72.2 - Plantar fascial fibromatosis Category: Medical (2) Left foot pain: Code(s): M79.672 - Pain in left foot Category: Medical (3) Calcaneal spur, left foot: Code(s): M77.32 - Calcaneal spur, left foot Category: Medical (4) Other enthesopathy of left foot and ankle: Code(s): M77.52 - Other enthesopathy of left foot and ankle Category: Medical (5) Xerosis cutis: Code(s): L85.3 - Xerosis cutis Category: Medical (6) Tinea unguium: Code(s): B35.1 - Tinea unguium Category: Medical Plan Patient was informed and verbally consented to the use of an ambient scribe for clinic note documentation during this visit. I discussed with the patient the management of plantar fasciitis, emphasizing the importance of stretching exercises and the use of a night splint to alleviate pain. We also reviewed the treatment options for irritation to the nails, including soaking in Epsom salt and potential removal if an ingrown nail arises. For onychomycosis, I explained the use of topical treatments and the possibility of oral medication, highlighting the need for liver function monitoring if oral treatment is pursued. - Continue meloxicam for pain management. - Use a night splint to stretch the plantar fascia during rest to alleviate pain. Provided patient with a night splint. - Soak the foot in Epsom salt to reduce irritation to the toenails. - Consider topical treatment for onychomycosis, with the option of oral medication if necessary. Patient states he would like to wait to start treatment due to difficulty bending down to the feet. - Recommend continuation of stretching exercises and use of insoles for foot support. - Advised use of supportive shoe gear and to avoid barefoot walking. - Continue use of Ammonium lactate cream for xerosis of skin. - Will consider injection, and/or physical therapy if pain persists. Will consider surgical intervention if conservative treatment fails. RTC 3 weeks for re-evaluation. Coding Level of Care Code Est Pt Level 4 (85888) Diagnoses Plantar fasciitis of left foot M72.2 Left foot pain M79.672 Calcaneal spur, left foot M77.32 Other enthesopathy of left foot and ankle M77.52 Xerosis cutis L85.3 Tinea unguium B35.1 Time Spent (min) 35
--- OUTSIDE RECORDS SUMMARY | 2024-12-06 11:05 | XMS_ITS | Patient Health Record ---
Author Organization [facility] Address [address] [place] [id number] Care Team Providers Care Middleware Solutions Architect Name Role Phone Marcial (RETIRED) Daniel LINTON Primary Care Provider Unavailable Robert Cullen Unavailable [phone] Allergies Allergen (clinical drug ingredient) Drug/Non Drug [...] Problem Screening for malignant neoplasm of colon (584530537) Encounter for screening for malignant neoplasm of colon (Z12.11) Active confirmed Problem Esophageal reflux finding (580151007) Gastroesophageal reflux (K21.9) Active confirmed Problem Diverticulosis of colon (383279798) Diverticulosis of colon (K57.30) Active confirmed Problem Gastroesophageal reflux disease (737430537) Gastroesophageal reflux disease, unspecified whether esophagitis present (K21.9) Active confirmed Plan Of Treatment Pending Test Test Name Order Date Pathology 04/27/2021 Future Test Test Name Order Date UPPER GI ENDOSCOPY 03/03/2021 COLONOSCOPY 03/03/2021 Insurance Providers Payer Name Payer Address Payer Phone Subscriber Number Group Number Insured Name Patient Relationship to Insured Coverage Start Date Coverage End Date [facility] [address] [place] [address] [id number] MARY CARMEN GARY Self - patient is the insured Medical (General) History Medical History History ICD Code Hx of kidney stones Hypertension Hypercholesterolemia Reports a negative colonoscopy at age 41 Arthritis Denies CO,DM,CVA,Lung disease,renal dise ase GERD Surgical History Surgery Date(Month/Year) Right knee C-spine 4,5,6 Arm surgery for a dog bite Broken nose
== END 2024-12-06 10:24 | disposition home or self-care (01) ==
LOC: HO.HPODS 09:36
PROVIDERS: PCP Internal Medicine; Visit Provider Student in an Organized Health Care Education/Training Program
DX: M72.2 Plantar fascial fibromatosis (principal); M79.672 Pain in left foot; M77.32 Calcaneal spur, left foot; M77.52 Other enthesopathy of left foot and ankle; L85.3 Xerosis cutis; B35.1 Tinea unguium
CPT/HCPCS: 99214

== ENCOUNTER 2024-12-06 14:43 | Outpatient (AMB) | payer OTHER, SELFPAY ==
--- NOTE | 2024-12-06 14:52 | A.OFFVIS_ITS ---
Vital Signs 12/06/24 14:53 Height 5 ft 10 in Weight 235 lb BMI 33.7 Intake Visit Reasons: Bilateral knee pain Intake Note: Ernie is a 54 year old man who presents with complaints of progressively worsening bilateral knee pains. The patient describes his pains as sharp in nature. His pains have gotten worse over the last few years in spite of continued non operative treatments. He has had cortisone injections in the past which gave him minimal relief. He has not had a viscosupplementation injection. The patient did undergo right knee arthroscopic surgery on 07/13/2024. He got mild relief from that procedure. At this point his bilateral knee pains are interfering with his activities of daily living and his ability to sleep well through the night. The patient wishes to hold off on knee replacement surgery for as long as possible. I agree with this plan. He has failed the last 3 months of conservative treatment which has included Tylenol, anti-inflammatory medicines, a home exercise program and physical therapy exercises. Allergies bee pollen (Bee Stings) Allergy (Severe, Verified 12/06/24 15:01) ANAPHYLAXIS DAIRY PRODUCTS Allergy (Severe, Uncoded 12/06/24 15:01) Diarrhea [facility] Medical History Xerosis cutis Other enthesopathy of left foot and ankle Calcaneal spur, left foot Left foot pain ADHD Hyperlipidemia Snores Recent bereavement Depression Numbness Cough Osteoarthritis GERD (gastroesophageal reflux disease) Nicotine dependence IBS (irritable bowel syndrome) Essential tremor Sacroiliitis Obesity Sciatica Tinnitus History of broken nose Arthritis Hypercholesteremia HTN (hypertension) Kidney stones Surgical History H/O arthroscopy of left knee History of nasal surgery [place] teeth removed History of esophagogastroduodenoscopy (EGD) H/O right knee surgery H/O cervical spine surgery History of surgery on arm H/O colonoscopy (~05/04/21) Social History Household Members: Spouse Housing: House Are you a primary health care analyst to a significant other at home: No Do you presently have visiting nurse or other home services: No Patient Tobacco Use Status: Current everyday Tobacco user Tobacco use type: Cigarette Years Smoked: 25 years e-Cigarette/Vaping Use: Never Used Second Hand Smoke Exposure: Yes ( smokes also) service: No Current occupational status: employed Current occupation: [employer] Physical Exam Vital Signs: BMI result Body Mass Index 33.7 Const Other: Well-nourished well-developed very friendly male awake alert and oriented x3 in no acute distress Extrem Other: Bilateral knee examination shows minimal effusions, palpable crepitus with range of motion, pain with range of motion, no instability Results Reviewed Results Reviewed: X-rays of the patient's bilateral knees taken previously show joint space narrowing, subchondral sclerosis, no acute bony abnormalities Assessment & Plan Assessment & Plan (1) Pain in both knees: Code(s): M25.561 - Pain in right knee; M25.562 - Pain in left knee (2) Osteoarthritis of left knee: Code(s): M17.12 - Unilateral primary osteoarthritis, left knee Category: Medical (3) Osteoarthritis of right knee: Code(s): M17.11 - Unilateral primary osteoarthritis, right knee Category: Medical Plan Mr. English presents with bilateral knee pains due to osteoarthritis. I had a lengthy discussion with the patient regarding the treatment options. He wishes to hold off on total knee replacement surgery for as long as possible. I agree with this plan. I will see if the patient's insurance company will cover a viscosupplementation injection, such as Durolane, for both of his knees. I will see him back once the injections are available. Feel free to call me at any time should questions regarding his orthopedic management arise. I spent 21 minutes in reviewing the patient's records and imaging studies, seeing the patient and documenting in the medical record. Coding Level of Care Code Est Pt Level 3 (38934) Complex EM visit Add On G2211 Diagnoses Pain in both knees M25.561; M25.562 Osteoarthritis of left knee M17.12 Osteoarthritis of right knee M17.11
[2024-12-06 14:53] VITALS: BMI 33.7
== END 2024-12-06 15:31 | disposition home or self-care (01) ==
LOC: HO.HOS 14:43
PROVIDERS: PCP Internal Medicine; Visit Provider Orthopaedic Surgery
DX: M25.561 Pain in right knee (principal); M25.562 Pain in left knee; M17.0 Bilateral primary osteoarthritis of knee
CPT/HCPCS: 99213

== ENCOUNTER 2025-01-02 07:46 | Outpatient (AMB) | payer OTHER, SELFPAY ==
--- OUTSIDE RECORDS SUMMARY | 2025-01-02 07:52 | XMS_ITS | Patient Health Record ---
Author Organization [facility] Address [address] [place] [id number] Care Team Providers Care Bicycle Repair Technician Name Role Phone Marcial (RETIRED) Daniel LINTON Primary Care Provider Unavailable Robert Cullen Unavailable [phone] Allergies Allergen (clinical drug ingredient) Drug/Non Drug Allergy documented on EMR Reaction Allergy Type Onset Date Status milk products (uncoded) Unknown Allergy Active Bee Sting Unknown Allergy Active Reason For Referral No Information Medications Medication SIG (Take, Route, Frequency, Duration) Notes Start Date End Date Status Metoprolol Succinate ER 50 MG Tablet Extended Release 24 Hour Oral; Duration: 30 Not-Ta michaela/PRN Amoxicillin 875 MG Tablet Oral; Duration: 10 Not-Takin g/PRN Multivitamin - Tablet 1 tablet Orally On ce a day; Duration: 30 day(s) Active CoQ10 200 MG Capsule as directed Orally Active Omeprazole 20 MG Capsule Delayed Release Oral; Duration: 30 Active Lisinopril 5 MG Tablet Oral; Duration: 30 Active Simvastatin 20 MG Tablet Oral; Duration: 30 Active Meloxicam 15 MG Tablet Oral; Duration: 30 Active Immunizations Vaccine Route Administration Date Status Comme nts Influenza Unknown 10/08/2020 Administered Social History Tobacco Use: Social History Observation Description Date Details (start date - stop date) Former Smoker NA - NA Social History Drugs/Alcohol: Social Info Question Answer Notes Alcohol Screen Did you have a drink containing alcohol in the past year? Yes How often did you have a drink containing alcohol in the past year? 2 to 4 times a month (2 points) How many drinks did you have on a typical day when you were drinking in the past year? 1 or 2 drinks (0 point) How often did you have 6 or more drinks on one occasion in the past year? Never (0 point) Points 2 Interpretation Negative Tobacco Use: Social Info Question Answer Notes Tobacco Use/Smoking Patient is a former smoker How long has it been since you last smoked? > 10 years Additional Details Category Social Info Options Details Miscellaneous: Marital status: Occupation: [employer] Section Notes: Currently smokes cigars; occ . alcohol Problems Problem Type SNOMED Code ICD Code Onset Dates Problem Status W/U Status Risk Notes Problem Screening for malignant neoplasm of colon (662653181) Encounter for screening for malignant neoplasm of colon (Z12.11) Active confirmed Problem Esophageal reflux finding (527767907) Gastroesophageal reflux (K21.9) Active confirmed Problem Diverticulosis of colon (631905150) Diverticulosis of colon (K57.30) Active confirmed Problem Gastroesophageal reflux disease (386885392) Gastroesophageal reflux disease, unspecified whether esophagitis present (K21.9) Active confirmed Plan Of Treatment Pending Test Test Name Order Date Pathology 04/27/2021 Future Test Test Name Order Date UPPER GI ENDOSCOPY 03/03/2021 COLONOSCOPY 03/03/2021 Insurance Providers Payer Name Payer Address Payer Phone Subscriber Number Group Number Insured Name Patient Relationship to Insured Coverage Start Date Coverage End Date [facility] [address] [address] [place] [address] [phone] [id number] MARY CARMEN GARY Self - patient is the insured Medical (General) History Medical History History ICD Code Hx of kidney stones Hypertension Hypercholesterolemia Reports a negative colonoscopy at age 41 Arthritis Denies DC,DM,CVA,Lung disease,renal dise ase GERD Surgical History Surgery Date(Month/Year) Right knee C-spine 4,5,6 Arm surgery for a dog bite Broken nose
[2025-01-02 07:58] VITALS: BMI 33.7
--- NOTE | 2025-01-02 07:58 | A.OFFVIS_ITS ---
Vital Signs 01/02/25 07:58 Height 5 ft 10 in Weight 235 lb BMI 33.7 Intake Visit Reasons: plantar fasciitis left foot Intake Note: Ernie is a 55 year old male presenting today for a follow up for plantar fasciitis of his left foot. At last appointment patient advised to continue with meloxicam for pain management. To continue using the night splint to stretch the plantar fascia during rest to alleviate pain. Patient advised to Soak the foot in Epsom salt to reduce irritation to the toenails, and consider topical treatment for onychomycosis, with the option of oral medication if necessary. Provider recommended continuation of stretching exercises and use of insoles for foot support, as well as continued use of Ammonium lactate cream for xerosis of skin. Patient reports he founds the night splint was very uncomfortable however he still performs the stretching exercises and taking the meloxicam medication. He finds he is still experiencing pain but notices slight improvment. Allergies bee pollen (Bee Stings) Allergy (Severe, Verified 01/02/25 07:59) ANAPHYLAXIS DAIRY PRODUCTS Allergy (Severe, Uncoded 12/06/24 15:01) Diarrhea HPI Comments Details: The patient is a 55 year old individual presenting with follow-up of plantar fasciitis to the left foot. The patient reports continued pain, worsened to the medial aspect of the heel and arch. Patient states he tried using the night splints but was unable to tolerate it through the night. He rates the pain as intermittent and a 7/10. The patient states he continues to adhere to the stretching exercises and has taken meloxicam as needed for pain. He denies any new pedal injuries. He denies any other pedal concerns. Patient was accompanied by his . [facility] Medical History (Updated 12/09/24 @ 12:48 by Ludivina Sorensen DPM) Tinea unguium Xerosis cutis Other enthesopathy of left foot and ankle Calcaneal spur, left foot Left foot pain ADHD Hyperlipidemia Snores Recent bereavement Depression Numbness Cough Osteoarthritis GERD (gastroesophageal reflux disease) Nicotine dependence IBS (irritable bowel syndrome) Essential tremor Sacroiliitis Obesity Sciatica Tinnitus History of broken nose Arthritis Hypercholesteremia HTN (hypertension) Kidney stones Surgical History H/O arthroscopy of left knee History of nasal surgery [place] teeth removed History of esophagogastroduodenoscopy (EGD) H/O right knee surgery H/O cervical spine surgery History of surgery on arm H/O colonoscopy (~05/04/21) Social History Household Members: Spouse Housing: House Are you a primary primary care nurse practitioner to a significant other at home: No Do you presently have visiting nurse or other home services: No Patient Tobacco Use Status: Current everyday Tobacco user Tobacco use type: Cigarette Years Smoked: 25 years e-Cigarette/Vaping Use: Never Used Second Hand Smoke Exposure: Yes ( smokes also) service: No Current occupational status: employed Current occupation: [employer] Review of Systems Const Details: - Musculoskeletal: Reports consistent left foot pain, exacerbated by walking. All systems reviewed & are unremarkable except as noted in HPI and below Physical Exam Vital Signs: BMI result Body Mass Index 33.7 Extrem Other: LLE Focused Physical Exam: Derm: Xerosis noted to the plantar aspects of B/L feet. Thickened, discolored, and dystrophic toenails x10 of normal length. No open lesions, abrasions, or wounds noted. No clinical signs of infection. No ecchymosis or discoloration noted. No maceration noted. Vasc: DP/PT pulses palpable. CFT < 3 secs. Temp gradient warm to warm. Pedal hair diminished. No varicosites noted. No edema noted. Neuro: Protective sensations grossly intact. MSK: Pain on palpation to the plantar aspect of the heel in the area of the medial calcaneal tubercle and central aspect of the calcaneus. No pain upon palpation to the lateral calcaneal tubercle. Negative windlass mechanism. Mildly antalgic gait. ROM of the forefoot, hindfoot, and ankle WNL. MMT 5/5. Office Procedures AMB Flexor Tendon/Plantar POD Tendon Injection Details of AMB Procedure: Procedure: Left foot plantar fascia injection: Patient identified the most painful aspect of the left heel which was marked prior to injection. Next, cleansed the affected area with an alcohol. Next injected 1.5 cc of lidocaine plain, 1 cc of dexamethasone, and 0.5 cc of triamcinolone to the affected area with no incidents. A band-aid was applied to the area. Provided patient with after care instructions. Tendon Injection POD1: - Plantar Fascia Injection All charges added?: Procedure code (CPT) selection complete Office Meds triamcinolone acetonide 40 mg/mL suspension for injection Performing Provider: Ludivina Sorensen DPM [place] [facility] [facility] Administered by: Ludivina Sorensen DPM on 01/07/25 12:26 Dose Route Admin Location Dispensed Lot Number Expiration Date [facility] [employer] 20 mg Tendon Sheath Inj. 1 mL [id number] [employer] Total Dispensed Waste 1 mL 50 % dexamethasone sodium phosphate 4 mg/mL injection solution Performing Provider: Ludivina Sorensen DPM [place]forming [place] [facility] [facility] Administered by: Ludivina Sorensen DPM on 01/07/25 12:26 Dose Route Admin Location Dispensed Lot Number Expiration Date [facility] [employer] 4 mg Tendon Sheath Inj. 1 mL [id number] [employer] Total Dispensed Waste 1 mL 0 % lidocaine HCl 10 mg/mL (1 %) injection solution Performing Provider: Ludivina Sorensen DPM [place]forming [place] [facility] [place] [facility] Administered by: Ludivina Sorensen DPM on 01/07/25 12:26 Dose Route Admin Location Dispensed Lot Number Expiration Date [facility] [employer] 1.5 mL subcut 1.5 mL [id number] Total Dispensed Waste 1.5 mL 0 % Results Reviewed Results Reviewed: Podiatry Read of Left foot xray (10/31/24): Bone spur noted to the plantar aspect of the calcaneus. Mild joint space narrowing noted to the 1st MPJ with osteophyte formation noted. No acute fractures or dislocations noted. Left foot xray (10/31/24): FINDINGS: There is mild asymmetric narrowing of the first metatarsophalangeal joint with lateral marginal osteophytes. There is a small plantar calcaneal spur. No other abnormalities are detected. IMPRESSION: Mild first MTP joint osteoarthritis. Nonspecific small calcaneal spur. Assessment & Plan Assessment & Plan (1) Plantar fasciitis of left foot: Code(s): M72.2 - Plantar fascial fibromatosis Category: Medical (2) Left foot pain: Code(s): M79.672 - Pain in left foot Category: Medical (3) Calcaneal spur, left foot: Code(s): M77.32 - Calcaneal spur, left foot Category: Medical (4) Other enthesopathy of left foot and ankle: Code(s): M77.52 - Other enthesopathy of left foot and ankle Category: Medical (5) Xerosis cutis: Code(s): L85.3 - Xerosis cutis Category: Medical (6) Tinea unguium: Code(s): B35.1 - Tinea unguium Category: Medical Plan Patient was informed and verbally consented to the use of an ambient scribe for clinic note documentation during this visit. I discussed the treatment options for plantar fasciitis including a cortisone injection, PT, and/or surgery if conservative treatment fails. The patient opts for a cortisone injection today. The patient provided consent, and the injection was administered. I provided a referral for physical therapy. Follow-up is scheduled in 6 weeks to assess the response to treatment. - Administered a cortisone injection to the left foot. - Provided a referral for physical therapy. - Counseled the patient on the importance of continuing home stretching exercises to prevent recurrence. - Continue meloxicam prn for pain management. - Continue using the night splint when resting. - Consider topical treatment for onychomycosis, with the option of oral medication if necessary. Patient states he would like to wait to start treatment due to difficulty bending down to the feet. - Advised use of supportive shoe gear and to avoid barefoot walking. - Continue use of Ammonium lactate cream for xerosis of skin. RTC in 6 weeks for re-evaluation. Orders: Orders AMB Flexor Tendon / Plantar Fascia Injection 01/02/25 M72.2 - Plantar fascial fibromatosis, M77.32 - Calcaneal spur, left foot, M77.52 - Other enthesopathy of left foot and ankle, M79.672 - Pain in left foot PT Evaluation and Treatment 01/02/25 M72.2 - Plantar fascial fibromatosis, M77.32 - Calcaneal spur, left foot, M77.52 - Other enthesopathy of left foot and ankle, M79.672 - Pain in left foot Coding Level of Care Code Est Pt Level 4 (31558) Diagnoses Plantar fasciitis of left foot M72.2 Left foot pain M79.672 Calcaneal spur, left foot M77.32 Other enthesopathy of left foot and ankle M77.52 Xerosis cutis L85.3 Tinea unguium B35.1 CPT Codes Tendon Injection - Tendon Injection POD1: - Plantar Fascia Injection ([id number]) Time Spent (min) 35 Comment 5 mins for procedure
== END 2025-01-02 08:25 | disposition home or self-care (01) ==
LOC: HO.HPODS 07:47
PROVIDERS: PCP Internal Medicine; Visit Provider Student in an Organized Health Care Education/Training Program
DX: M72.2 Plantar fascial fibromatosis (principal); M79.672 Pain in left foot; M77.32 Calcaneal spur, left foot; M77.52 Other enthesopathy of left foot and ankle; L85.3 Xerosis cutis; B35.1 Tinea unguium
CPT/HCPCS: 20550; 99214

== ENCOUNTER → 2025-01-02 07:46 | Outpatient (BNVA) | payer OTHER, SELFPAY | PROVIDERS: PCP Internal Medicine; Visit Provider Student in an Organized Health Care Education/Training Program | DX: M72.2 Plantar fascial fibromatosis (principal); M79.672 Pain in left foot; M77.32 Calcaneal spur, left foot; M77.52 Other enthesopathy of left foot and ankle; L85.3 Xerosis cutis; B35.1 Tinea unguium | CPT/HCPCS: 20550; J1100; J2003; J3301 ==

== ENCOUNTER 2025-01-17 15:01 | Outpatient (AMB) | payer OTHER, SELFPAY ==
[2025-01-17 15:08] VITALS: BMI 33.7
--- NOTE | 2025-01-17 15:08 | A.OFFVIS_ITS ---
Vital Signs 01/17/25 15:08 Height 5 ft 10 in Weight 235 lb BMI 33.7 Intake Visit Reasons: B/L knees Durolane Intake Note: Ernie is a 54 year old man who presents with complaints of bilateral knee pains. He describes his pains as sharp in nature. He has failed the last 3 months of conservative treatment. At this point his bilateral knee pains are interfering with his activities of daily living and his ability to sleep well through the night. Allergies bee pollen (Bee Stings) Allergy (Severe, Verified 01/17/25 15:08) ANAPHYLAXIS DAIRY PRODUCTS Allergy (Severe, Uncoded 01/17/25 15:08) Diarrhea Medication List - Last Reconciled 01/18/25 by Drew Cabrera MD acetaminophen (Acetaminophen Extra Strength) 1,000 mg PO QID PRN ammonium lactate 12% 1 appl topical DAILY atomoxetine 40 mg PO DAILY coQ10 (ubiquinol) 100 mg PO DAILY epinephrine 0.3 mg IM Q10M PRN lisinopril 20 mg PO BID 90 days meloxicam 15 mg PO DAILY PRN Held on 11/23/24. Instructions: Patient will take Medrol Dose [place] instead metoprolol succinate ER 1 tab PO DAILY pregabalin 150 mg PO BID simvastatin 1 tab PO DAILY tramadol 50 mg PO Q12H PRN PFSH Medical History Tinea unguium Xerosis cutis Other enthesopathy of left foot and ankle Calcaneal spur, left foot Left foot pain ADHD Hyperlipidemia Snores Recent bereavement Depression Numbness Cough Osteoarthritis GERD (gastroesophageal reflux disease) Nicotine dependence IBS (irritable bowel syndrome) Essential tremor Sacroiliitis Obesity Sciatica Tinnitus History of broken nose Arthritis Hypercholesteremia HTN (hypertension) Kidney stones Surgical History H/O arthroscopy of left knee History of nasal surgery [place] teeth removed History of esophagogastroduodenoscopy (EGD) H/O right knee surgery H/O cervical spine surgery History of surgery on arm H/O colonoscopy (~05/04/21) Social History Household Members: Spouse Housing: House Are you a primary transitional care manager to a significant other at home: No Do you presently have visiting nurse or other home services: No Patient Tobacco Use Status: Current everyday Tobacco user Tobacco use type: Cigarette Years Smoked: 25 years e-Cigarette/Vaping Use: Never Used Second Hand Smoke Exposure: Yes ( smokes also) service: No Current occupational status: employed Current occupation: [employer] Physical Exam Vital Signs: BMI result Body Mass Index 33.7 Extrem Other: Bilateral knee examination shows minimal effusions, palpable crepitus with range of motion, pain with range of motion, no instability Office Procedures AMB Joint Injection/Aspiration Joint Injection/Aspiration Primary Site: Right Knee Prep: site was prepped using aseptic technique Injected: 60 mg of, Durolane, with 3 mL of and 1% plain Lidocaine Procedure: The patient tolerated the procedure well Coding 49739 - Large joint Procedure code (CPT) selection complete AMB Joint Injection/Aspiration Joint Injection/Aspiration Primary Site: Left Knee Prep: site was prepped using aseptic technique Injected: 60 mg of, Durolane, with 3 mL of and 1% plain Lidocaine Procedure: The patient tolerated the procedure well Coding 09793 - Large joint Procedure code (CPT) selection complete Results Reviewed Results Reviewed: X-rays of the patient's bilateral knees taken previously show joint space narrowing, subchondral sclerosis, no acute bony abnormalities Assessment & Plan Assessment & Plan (1) Osteoarthritis of left knee: Code(s): M17.12 - Unilateral primary osteoarthritis, left knee Category: Medical (2) Osteoarthritis of right knee: Code(s): M17.11 - Unilateral primary osteoarthritis, right knee Category: Medical Plan Mr. Amador Pittman presents with bilateral knee pains due to osteoarthritis. The risks and benefits of bilateral knee Durolane viscosupplementation injections were discussed at length with the patient. The patient wished to proceed. He tolerated the injections well. He will continue with his home exercise program. He will contact me prior to his follow-up appointment in 3 months should any questions or concerns arise. Feel free to call me at any time should questions regarding his orthopedic management arise. I spent 20 minutes in reviewing the patient's records and imaging studies, seeing the patient and documenting in the medical record. Orders: Orders AMB Joint Injection/Aspiration 01/17/25 M17.12 - Unilateral primary osteoarthritis, left knee AMB Joint Injection/Aspiration 01/17/25 M17.11 - Unilateral primary osteoarthritis, right knee Coding Level of Care Code Est Pt Level 3 (73375) Add On Problem Visit Only Diagnoses Osteoarthritis of left knee M17.12 Osteoarthritis of right knee M17.11 CPT Codes Coding - 93663 Large joint: 69175 - Large joint ([id number]) Coding - 92248 Large joint: 44512 - Large joint ([id number])
--- OUTSIDE RECORDS SUMMARY | 2025-01-17 22:33 | XMS_ITS | Patient Health Record ---
[facility] Organization [facility] Address [address] [place] [id number] Care Team Providers Care Engine Manager Name Role Phone Marcial (RETIRED) Daniel LINTON Primary Care Provider Unavailable Robert Cullen Unavailable [phone] Allergies Allergen (clinical drug ingredient) Drug/Non Drug [...] Options Details Miscellaneous: Marital status: Occupation: [employer] Section Notes: Currently smokes cigars; occ . alcohol Problems Problem Type SNOMED Code ICD Code Onset Dates Problem Status W/U Status Risk Notes Problem Screening for malignant neoplasm of colon (640350624) Encounter for screening for malignant neoplasm of colon (Z12.11) Active confirmed Problem Esophageal reflux finding (100351382) Gastroesophageal reflux (K21.9) Active confirmed Problem Diverticulosis of colon (941010669) Diverticulosis of colon (K57.30) Active confirmed Problem Gastroesophageal reflux disease (015762791) Gastroesophageal reflux disease, unspecified whether esophagitis present (K21.9) Active confirmed Plan Of Treatment Pending Test Test Name Order Date Pathology 04/27/2021 Future Test Test Name Order Date UPPER GI ENDOSCOPY 03/03/2021 COLONOSCOPY 03/03/2021 Insurance Providers Payer Name Payer Address Payer Phone Subscriber Number Group Number Insured Name Patient Relationship to Insured Coverage Start Date Coverage End Date [facility] [address] [address] [place] [address] [phone] [id number] MARY CARMEN GARY Self - patient is the insured Medical (General) History Medical History History ICD Code Hx of kidney stones Hypertension Hypercholesterolemia Reports a negative colonoscopy at age 41 Arthritis Denies [place],DM,CVA,Lung disease,renal dise ase GERD Surgical History Surgery Date(Month/Year) Right knee C-spine 4,5,6 Arm surgery for a dog bite Broken nose
== END 2025-01-17 16:11 | disposition home or self-care (01) ==
LOC: HO.HOS 15:01
PROVIDERS: PCP Internal Medicine; Visit Provider Orthopaedic Surgery
DX: M17.0 Bilateral primary osteoarthritis of knee (principal)
CPT/HCPCS: 20610; 99213

== ENCOUNTER → 2025-01-17 15:01 | Outpatient (BNVA) | payer OTHER, SELFPAY | PROVIDERS: PCP Internal Medicine; Visit Provider Orthopaedic Surgery | DX: M17.0 Bilateral primary osteoarthritis of knee (principal) | CPT/HCPCS: 20610; J2003; J7318 ==